=== PATIENT | male | born 1980 | race Caucasian/White ===

== ENCOUNTER 2019-01-22 03:24 | Emergency (ER) | payer OTHER, MEDICAID, SELFPAY ==
[2019-01-22 03:45] VITALS: BP 138/85; PULSE 96; RESP 14; TEMP 36.4; O2SAT 99; BMI 31.5
--- NOTE | 2019-01-22 04:41 | ED_ITS ---
HPI - Extremity Problem <Feli Alexey Granados DO - Last Filed: 01/22/19 09:01> General Chief complaint: Recheck/Abnormal Lab/Rx Stated complaint: right elbow pain/infectious blood disease Time Seen by Provider: 01/22/19 04:38 Source: patient and old records reviewed Mode of arrival: Ambulatory Limitations: no limitations History of Present Illness HPI Narrative: 38-year-old male who comes to the emergency department for right elbow pain and infectious bullets disease. Patient states that he was supposed to be admitted to [facility] in felling him he had an infection in his elbow which from prior records appears to be bursitis. He states that they did draw fluid off of that area and he had a staph infection he was on antibiotics for approximately 2 weeks. He followed up with Orthopedic surgery through [place] Dr. Stallings, patient then fell on a flat palm Um flexing his elbow and had a triceps tendon tear. He was supposed to have repair but his orthopedic surgeon felt that there was continuing to be infection in the elbow and that he needed to be hospitalized for IV antibiotics. This was arranged and with patient and arrived at telling him they were under the impression that the would be staying with him in the room as she is disabled. They were unhappy with th eir interactions with the staff had Balling him and left the hospital to come here. Patient has any fevers. He has had some nausea and occasionally felt hot. He feels like his elbow has been warm, it has been swollen. He states he feels tired intermittently he denies any other symptoms. Has a history of elevated triglycerides, prediabetic but quit his metformin because states it made him feel ill. He takes Percocet as needed for chronic knee pain. He has had knee surgery bilaterally as well as hand surgery for fracture and Staph infection. Denies tobacco, rare alcohol, denies illicit. Related Data Allergies Allergy/AdvReac Type Severity Reaction Status Date / Time No Known Drug Allergies Allergy Verified 01/22/19 04:21 Review of Systems <DO Wilda Tovar Last Filed: 01/22/19 09:01> Review of Systems ROS Unobtainable: All systems reviewed & are unremarkable except as noted in HPI and below Exam <DO Wilda Tovar Last Filed: 01/22/19 09:01> Narrative Exam Narrative: GENERAL: Alert and oriented x three, obese male who appears older than his stated age HEENT: Head normocephalic, atraumatic, EOMI, pupils reactive, face symmetric, moist mucous membranes NECK: Supple, full range of motion CARDIOVASCULAR: Regular rate and rhythm without murmurs, rubs or gallops. RESPIRATORY: Breath sounds equal bilaterally, no wheezes rales or rhonchi. ABDOMEN: Soft, nontender. Normoactive bowel sounds all 4 quadrants. No guarding or rebound, rigidity, no mass : No CVA tenderness EXTREMITIES: Patient's right elbow has some mild tenderness, he does appear to be more swollen in gentle right compared to left but there is no discrete bursitis that I can palpated sort of a generalized swelling around the elbow. I do not appreciate any erythema but there does appear to be darkening of the skin. There is no warmth. Patient has slightly decreased range of motion by about 10 or 20?. He has no other bony tenderness. He has full strength with architectural administrative assistant equal and 2+ pulses bilaterally, no clubbing. Neurovascularly intact NEUROLOGICAL: Cranial nerves II through XII grossly intact. Moving all ext remities SKIN: Warm, dry, no petechiae, no rashes or lesions. Initial Vital Signs Initial Vital Signs: Vital Signs Temperature 97.5 F L 01/22/19 03:45 Pulse Rate 96 H 01/22/19 03:45 Respiratory Rate 14 01/22/19 03:45 Blood Pressure 138/85 01/22/19 03:45 Pulse Oximetry 99 01/22/19 03:45 <Henrik Balbuena, DO - Last Filed: 01/22/19 09:22> Initial Vital Signs Initial Vital Signs: Vital Signs Temperature 97.5 F L 01/22/19 03:45 Pulse Rate 96 H 01/22/19 03:45 Respiratory Rate 14 01/22/19 03:45 Blood Pressure 138/85 01/22/19 03:45 Pulse Oximetry 99 01/22/19 03:45 Course <Feli Granados, DO - Last Filed: 01/22/19 09:01> Orders Ordered: ED Orders 01/22/19 05:03 XR elbow RT min 3V Stat 01/22/19 05:30 C-Reactive Protein Quant Stat Complete Blood Count AUTO DIFF Stat Comprehensive Metabolic Panel Stat Erythrocyte Sedimentation Rate Stat Procalcitonin Stat 01/22/19 05:40 Blood Culture Stat Vital Signs Vital signs: Vital Signs - 8 hr 01/22/19 03:45 01/22/19 07:55 Temperature 97.5 F L Pulse Rate 96 H 75 Respiratory Rate 14 16 Blood Pressure 138/85 121/58 L Pulse Oximetry 99 97 <Henrik Balbuena, DO - Last Filed: 01/22/19 09:22> Orders Ordered: ED Orders 01/22/19 05:03 XR elbow RT min 3V Stat 01/22/19 05:30 C-Reactive Protein Quant Stat Complete Blood Count AUTO DIFF Stat Comprehensive Metabolic Panel Stat Erythrocyte Sedimentation Rate Stat Procalcitonin Stat 01/22/19 05:40 Blood Culture Stat Vital Signs Vital signs: Vital Signs - 8 hr 01/22/19 03:45 01/22/19 07:55 Temperature 97.5 F L Pulse Rate 96 H 75 Respiratory Rate 14 16 Blood Pressure 138/85 121/58 L Pulse Oximetry 99 97 MDM - Extremity (Nontraumatic) <Feli Granados, DO - Last Filed: 01/22/19 09:01> Lab Data Attestation: I reviewed the patient's lab results. Result diagrams: 01/22/19 05:30 01/22/19 05:30 Labs: Lab Results 01/22/19 01/22/19 01/22/19 Range/Units 05:30 05:30 05:30 WBC 11.0 (4.5-11.0) X10^3/uL RBC 4.32 L (4.5-5.9) X10^6/uL Hgb 12.8 L (13.5-17.5) g/dL Hct 37.0 L (41-53) % MCV 85.7 (80-100) fL MCH 29.8 (26-34) PG MCHC 34.7 (30-36) % RDW 13.3 (11.6-14.8) % Plt Count 492 H (150-400) X10^3/uL Neut % (Auto) 63.2 (50-75) % Lymph % (Auto) 28.3 (25-40) % Dickson % (Auto) 7.6 (3-14) % Eos % (Auto) 0.6 L (2-4) % Baso % (Auto) 0.3 (0-2) % Neut # (Auto) 6900 (0051-0680) /uL Lymph # (Auto) 3100 (9703-4498) /uL Dickson # (Auto) 800 (0-900) /uL Eos # (Auto) 100 (0-450) /uL Baso # (Auto) 0 (0-100) /uL ESR 61 H (0-15) MM/HR Sodium 140 (137-145) mmol/L Potassium 4.3 (3.4-5.1) mmol/L Chloride 100 (98-107) mmol/L Carbon Dioxide 30 (22-32) mmol/L BUN 19 (9-20) mg/dL Creatinine 0.80 (0.66-1.25) mg/dL Estimated GFR > 60.0 (>60) mL/min BUN/Creatinine Ratio 23.8 H (6-22) Glucose 112 H (70-100) mg/dL Calcium 9.2 (8.4-10.2) mg/dL Total Bilirubin 0.5 (0.2-1.3) mg/dL AST 32 (17-59) IU/L ALT 30 (21-72) IU/L Alkaline Phosphatase 95 (38-126) U/L C-Reactive Protein 3.2 H (<1.0) mg/dL Total Protein 8.2 (6.3-8.2) g/dL Albumin 4.3 (3.5-5.0) g/dL Globulin 3.9 (1.7-4.1) g/dL Albumin/Globulin Ratio 1.1 (1.0-2.8) Procalcitonin < 0.05 (<0.5) ng/mL Imaging Data Elbow x-ray: Radiologist's impression: [address] [address] XRay Report Signed Patient: Delta Sidhu [facility]#: [id number] : 1980Acct:[id number] Age/Sex: 38 / MDate of Service: 01/22/19 Loc: ED Accession Number: [id number] Procedure: XR elbow RT min 3V Ordering Provider: Feli Granados D.O. PROCEDURE: XR ELBOW RT MIN 3V INDICATIONS: bursitis/septic arthritis, recent tendon rupture TECHNIQUE: 3 views of the elbow were acquired. COMPARISON: None. FINDINGS: Bones: No acute fractures or dislocations. There is a remote, healed fracture seen of the olecranon fossa. No suspicious bony lesions. Soft tissues: Calcification is seen posterior to the olecranon, which is consistent with a given history of a triceps tendon rupture. Soft tissue swelling is seen. IMPRESSION: Soft tissue swelling is seen, with a triceps tendon rupture. If it would be helpful for clinical management decision making, please consider a dedicated elbow MRI for further evaluation (assuming that there is no contraindication). Dictated by: Ramesh Monk M.D. on 01/22/2019 at 6:58 Approved by: Ramesh Monk M.D. on 01/22/2019 at 7:00 MDM Narrative Medical decision making narrative: Records obtained, patient was signed out to Dr. Balbuena while awaiting labs. <Henrik Balbuena, - Last Filed: 01/22/19 09:22> Lab Data Labs: Lab Results 01/22/19 01/22/19 01/22/19 Range/Units 05:30 05:30 05:30 WBC 11.0 (4.5-11.0) X10^3/uL RBC 4.32 L (4.5-5.9) X10^6/uL Hgb 12.8 L (13.5-17.5) g/dL Hct 37.0 L (41-53) % MCV 85.7 (80-100) fL MCH 29.8 (26-34) PG MCHC 34.7 (30-36) % RDW 13.3 (11.6-14.8) % Plt Count 492 H (150-400) X10^3/uL Neut % (Auto) 63.2 (50-75) % Lymph % (Auto) 28.3 (25-40) % Dickson % (Auto) 7.6 (3-14) % Eos % (Auto) 0.6 L (2-4) % Baso % (Auto) 0.3 (0-2) % Neut # (Auto) 6900 (8022-5389) /uL Lymph # (Auto) 3100 (2611-5677) /uL Dickson # (Auto) 800 (0-900) /uL Eos # (Auto) 100 (0-450) /uL Baso # (Auto) 0 (0-100) /uL ESR 61 H (0-15) MM/HR Sodium 140 (137-145) mmol/L Potassium 4.3 (3.4-5.1) mmol/L Chloride 100 (98-107) mmol/L Carbon Dioxide 30 (22-32) mmol/L BUN 19 (9-20) mg/dL Creatinine 0.80 (0.66-1.25) mg/dL Estimated GFR > 60.0 (>60) mL/min BUN/Creatinine Ratio 23.8 H (6-22) Glucose 112 H (70-100) mg/dL Calcium 9.2 (8.4-10.2) mg/dL Total Bilirubin 0.5 (0.2-1.3) mg/dL AST 32 (17-59) IU/L ALT 30 (21-72) IU/L Alkaline Phosphatase 95 (38-126) U/L C-Reactive Protein 3.2 H (<1.0) mg/dL Total Protein 8.2 (6.3-8.2) g/dL Albumin 4.3 (3.5-5.0) g/dL Globulin 3.9 (1.7-4.1) g/dL Albumin/Globulin Ratio 1.1 (1.0-2.8) Procalcitonin < 0.05 (<0.5) ng/mL MDM Narrative Medical decision making narrative: Dr. Balbuena: Received turned over from night provider. Reviewed patient's history and physical. Perform my own independent exam. We did receive records from [facility]. I did discuss the case with Dr. Long who was on-call at our facility for Orthopedics. A discussion with Dr. Long who recommended given the complexity of the patient's situation and also the concern for follow-up that the patient be sent back to facility where he currently has an establish care with Orthopedics who also comes out to the [facility] where the patient could follow up. Patient is nontoxic appearing. I went in and discussed this with the patient. I offered to arrange transport for him to go back to [facility] where he was already scheduled to be inpatient. We did discuss the importance of continuity of care. Also informed him that he could be discharged and follow up with his primary on Thursday morning. Patient opted to be discharged home. He was alert oriented x3 and in my opinion at the capacity to make decisions. He is going to continue with his oral antibiotics. He was given return precautions and follow-up instructions. He expressed understanding and agreement with plan. Discharge Plan Departure Patient Disposition: Home Clinical Impression: Bursitis Qualifiers: Bursitis location: elbow Elbow bursitis location: olecranon bursitis Laterality: right Qualified Code(s): M70.21 - Olecranon bursitis, right elbow Discharge Date/Time: 01/22/19 07:55 Instructions: Bursitis Activity Restrictions/Additional Instructions: After our discussion you opted to follow up with your primary doctor rather than be transferred to [facility] to see your orthopedic provider. I do recommend that you continue all of your antibiotics. On Thursday contact your primary provider for a follow-up. Follow up with your orthopedic provider at [facility] if your symptoms worsen Referrals: Aleisha Radford PA-C [Primary Care Provider] -
--- NOTE | 2019-01-22 05:03 | DI.RAD.S_ITS ---
PROCEDURE: XR ELBOW RT MIN 3V INDICATIONS: bursitis/septic arthritis, recent tendon rupture TECHNIQUE: 3 views of the elbow were acquired. COMPARISON: None. FINDINGS: Bones: No acute fractures or dislocations. There is a remote, healed fracture seen of the olecranon fossa. No suspicious bony lesions. Soft tissues: Calcification is seen posterior to the olecranon, which is consistent with a given history of a triceps tendon rupture. Soft tissue swelling is seen. IMPRESSION: Soft tissue swelling is seen, with a triceps tendon rupture. If it would be helpful for clinical management decision making, please consider a dedicated elbow MRI for further evaluation (assuming that there is no contraindication). Dictated by: Ramesh Monk M.D. on 01/22/2019 at 6:58 Approved by: Ramesh Monk M.D. on 01/22/2019 at 7:00
[2019-01-22 06:03] LABS: Add Manual Diff / Slide Review NO; Basophils Absolute Auto 0 /uL (0-100); Basophils Percent Auto 0.3 % (0-2); Eosinophils Absolute Auto 100 /uL (0-450); Eosinophils Percent Auto 0.6 % (2-4); Hemoglobin 12.8 g/dL (13.5-17.5); Lymphocytes Absolute Auto 3100 /uL (1100-4500); Lymphocytes Percent Auto 28.3 % (25-40); Mean Corpuscular HGB Conc 34.7 % (30-36); Mean Corpuscular Hemoglobin 29.8 PG (26-34); Mean Corpuscular Volume 85.7 fL (80-100); Monocytes Absolute Auto 800 /uL (0-900); Monocytes Percent Auto 7.6 % (3-14); Neutrophils Absolute Auto 6900 /uL (1500-7000); Neutrophils Percent Auto 63.2 % (50-75); Platelet Count 492 X10^3/uL (150-400); Red Blood Cell Count 4.32 X10^6/uL (4.5-5.9); Red Cell Distribution Width 13.3 % (11.6-14.8)
[2019-01-22 06:13] LABS: Alanine Aminotransferase 30 IU/L (21-72); Albumin 4.3 g/dL (3.5-5.0); Albumin Globulin Ratio 1.1 (1.0-2.8); Alkaline Phosphatase 95 U/L (38-126); Aspartate Aminotransferase 32 IU/L (17-59); BUN Creatinine Ratio 23.8 (6-22); Bilirubin Total 0.5 mg/dL (0.2-1.3); Blood Urea Nitrogen 19 mg/dL (9-20); Calcium 9.2 mg/dL (8.4-10.2); Carbon Dioxide 30 mmol/L (22-32); Chloride 100 mmol/L (98-107); Estimated Glomerular Filt Rate > 60.0 mL/min (>60); Globulin 3.9 g/dL (1.7-4.1); Glucose 112 mg/dL (70-100); HEMOLYSIS < 15 (0-50); Potassium 4.3 mmol/L (3.4-5.1); Sodium 140 mmol/L (137-145); Total Protein 8.2 g/dL (6.3-8.2)
[2019-01-22 06:32] LABS: C-Reactive Protein Quant 3.2 mg/dL (<1.0); Erythrocyte Sedimentation Rate 61 MM/HR (0-15)
[2019-01-22 06:57] LABS: Procalcitonin < 0.05 ng/mL (<0.5)
[2019-01-22 07:55] VITALS: BP 121/58; PULSE 75; RESP 16; O2SAT 97
== END 2019-01-22 07:55 | disposition home or self-care (01) ==
PROVIDERS: Emergency Medicine; Emergency Provider Emergency Medicine; PCP Physician Assistant Medical
DX: M70.21 Olecranon bursitis, right elbow (principal)
CPT/HCPCS: 36415; 73080; 80053; 84145; 85025; 85651; 86140; 87040; 99282; 99284

== ENCOUNTER 2021-05-03 15:55 | Emergency (ER) | payer OTHER, MEDICAID, SELFPAY ==
[2021-05-03 15:59] VITALS: BP 134/68; PULSE 65; RESP 94; TEMP 36.2; O2SAT 98; BMI 31.5
--- NOTE | 2021-05-03 16:28 | ED.EXTPRO ---
HPI - Extremity Problem General Chief complaint: Extremity Problem,Nontraumatic Stated complaint: pain in legs and numbness in right leg Time Seen by Provider: 05/03/21 16:21 Source: patient Mode of arrival: Ambulatory History of Present Illness HPI Narrative: Patient is a 41-year-old male. He is here for evaluation of pain and numbness in his bilateral lower extremities. He does state that the right is worse than his left. It is been there for the past several weeks if not longer. No specific trauma. He states that it does seem to come and go. He states that he is having numbness in the back of his right calf and also pain and numbness in the bottom both of his feet. Has not been evaluated for this in the past. Has had lower back pain in the past. No urinary symptoms. No change in bowel habits. No saddle anesthesia. No fevers. Related Data Previous Rx's Medication Instructions Recorded gabapentin 100 mg capsule 100 mg PO TID #90 cap 05/03/21 (Neurontin) Allergies Allergy/AdvReac Type Severity Reaction Status Date / Time No Known Drug Allergies Allergy Verified 05/03/21 15:59 Review of Systems Musculoskeletal Musculoskeletal: Reports system reviewed and no additional complaints, except as documented and Reports as per HPI Integumentary/Breasts Skin/Breast: Reports system reviewed and no additional complaints, except as documented and Reports as per HPI Neurologic Neurologic: Reports system reviewed and no additional complaints, except as documented and Reports as per HPI Hematologic/Lymphatic On Anticoagulants: No Patient History Medical History Patient denies medical problems Social History Smoking Status: Never smoker Smoking Status: Never smoker alcohol intake frequency: holidays/special occasions only Substance Use Type: does not use Exam Initial Vital Signs Initial Vital Signs: Vital Signs Temperature 97.2 F L 05/03/21 15:59 Pulse Rate 65 05/03/21 15:59 Respiratory Rate 94 H 05/03/21 15:59 Blood Pressure 134/68 05/03/21 15:59 Pulse Oximetry 98 05/03/21 15:59 HENMT Head: normal to inspection and normocephalic Resp Effort & Inspection: normal respiratory effort Cardio Rhythm: regular rhythm Pulses: dorsalis pedis present bilaterally Skin General: no rashes or lesions noted Neuro Other: Patient reports decreased sensation to light touch in the posterior aspect of his right calf compared to the left side. Also decreased sensation on the medial aspect of his right foot compared to the left. Extrem Other: No gross deformities of bilateral feet. Psych Appearance: disheveled Course Orders Ordered: ED Orders 05/03/21 16:28 Consult to [facility] [place] - Senior Administrative Services Officer Stat 05/03/21 16:51 Complete Blood Count AUTO DIFF Stat Comprehensive Metabolic Panel Stat Lipase Stat Vital Signs Vital signs: Vital Signs - 8 hr 05/03/21 15:59 Temperature 97.2 F L Pulse Rate 65 Respiratory Rate 94 H Blood Pressure 134/68 Pulse Oximetry 98 MDM - Extremity (Nontraumatic) Lab Data Result diagrams: 05/03/21 16:51 05/03/21 16:51 Labs: Lab Results 05/03/21 05/03/21 05/03/21 Range/Units 16:51 16:51 16:51 WBC 8.0 (4.5-11.0) X10^3/uL RBC 4.26 L (4.5-5.9) X10^6/uL Hgb 12.9 L (13.5-17.5) g/dL Hct 37.6 L (41-53) % MCV 88.2 (80-100) fL MCH 30.3 (26-34) PG MCHC 34.3 (30-36) % RDW 13.9 (11.6-14.8) % Plt Count 328 (150-400) X10^3/uL Neut % (Auto) 68.2 (50-75) % Lymph % (Auto) 24.9 L (25-40) % [place]a % (Auto) 4.9 (3-14) % Eos % (Auto) 1.3 L (2-4) % Baso % (Auto) 0.7 (0-2) % Neut # (Auto) 5500 (3404-0367) /uL Lymph # (Auto) 2000 (8217-5237) /uL [place] # (Auto) 400 (0-900) /uL Eos # (Auto) 100 (0-450) /uL Baso # (Auto) 100 (0-100) /uL Sodium 140 (137-145) mmol/L Potassium 4.2 (3.4-5.1) mmol/L Chloride 107 (98-107) mmol/L Carbon Dioxide 29 (22-32) mmol/L BUN 20 (9-20) mg/dL Creatinine 0.68 (0.66-1.25) mg/dL Estimated GFR > 60.0 (>60) mL/min BUN/Creatinine Ratio 29.4 H (6-22) Glucose 125 H (70-100) mg/dL Calcium 8.7 (8.4-10.2) mg/dL Total Bilirubin 0.2 (0.2-1.3) mg/dL AST 29 (17-59) IU/L ALT 33 (<50) IU/L Alkaline Phosphatase 101 (38-126) U/L Total Protein 7.4 (6.3-8.2) g/dL Albumin 4.1 (3.5-5.0) g/dL Globulin 3.3 (1.7-4.1) g/dL Albumin/Globulin Ratio 1.2 (1.0-2.8) Lipase 45 (23-300) U/L MDM Narrative Medical decision making narrative: Labs are unremarkable. Patient is fairly disheveled. Has been seen by social work who will work with him at the beginning of next week to try to find a primary doctor. He is vascularly intact. There is no signs of any infection. Symptoms consistent with a peripheral neuropathy of a unknown origin currently however given the length of time the symptoms have been going on in his physical exam I feel this is unlikely an emergent process. No indication for antibiotics. Will start on Neurontin to try to help with the symptoms. He was given return precautions. He expressed understanding and agreement. Discharge Plan Departure Patient Disposition: Home Clinical Impression: Neuropathy Instructions: Peripheral Neuropathy Activity Restrictions/Additional Instructions: Social Work has been involved and will be contacting you to try to help get you establish with a primary doctor. You can also contact the call center at [phone]. Your blood work today is unremarkable. There is no signs of any infection. We will start you on a medicine called Neurontin. This should help with the discomfort your having. This medicine may need to be increased so it is important that you contact your primary doctor for follow-up. Prescriptions: New gabapentin [Neurontin] 100 mg capsule 100 mg PO TID Qty: 90 0RF Referrals: Aleisha Radford PA-C [Primary Care Provider] -
[2021-05-03 16:58] LABS: Add Manual Diff / Slide Review NO; Basophils Absolute Auto 100 /uL (0-100); Basophils Percent Auto 0.7 % (0-2); Eosinophils Absolute Auto 100 /uL (0-450); Eosinophils Percent Auto 1.3 % (2-4); Hematocrit 37.6 % (41-53); Hemoglobin 12.9 g/dL (13.5-17.5); Lymphocytes Absolute Auto 2000 /uL (1100-4500); Lymphocytes Percent Auto 24.9 % (25-40); Mean Corpuscular HGB Conc 34.3 % (30-36); Mean Corpuscular Hemoglobin 30.3 PG (26-34); Mean Corpuscular Volume 88.2 fL (80-100); Monocytes Absolute Auto 400 /uL (0-900); Monocytes Percent Auto 4.9 % (3-14); Neutrophils Absolute Auto 5500 /uL (1500-7000); Neutrophils Percent Auto 68.2 % (50-75); Platelet Count 328 X10^3/uL (150-400); Red Blood Cell Count 4.26 X10^6/uL (4.5-5.9); Red Cell Distribution Width 13.9 % (11.6-14.8)
[2021-05-03 17:15] LABS: Alanine Aminotransferase 33 IU/L (<50); Albumin 4.1 g/dL (3.5-5.0); Albumin Globulin Ratio 1.2 (1.0-2.8); Alkaline Phosphatase 101 U/L (38-126); Aspartate Aminotransferase 29 IU/L (17-59); BUN Creatinine Ratio 29.4 (6-22); Bilirubin Total 0.2 mg/dL (0.2-1.3); Blood Urea Nitrogen 20 mg/dL (9-20); Calcium 8.7 mg/dL (8.4-10.2); Carbon Dioxide 29 mmol/L (22-32); Chloride 107 mmol/L (98-107); Estimated Glomerular Filt Rate > 60.0 mL/min (>60); Globulin 3.3 g/dL (1.7-4.1); Glucose 125 mg/dL (70-100); HEMOLYSIS 20 (0-50); Lipase 45 U/L (23-300); Potassium 4.2 mmol/L (3.4-5.1); Sodium 140 mmol/L (137-145); Total Protein 7.4 g/dL (6.3-8.2)
--- NOTE | 2021-05-03 17:36 | CM.SWNOTE ---
SENIOR ANDROID SOFTWARE ENGINEER Note SENIOR ANDROID SOFTWARE ENGINEER receives consult for community service outreach for patient and patient's need of PCP. Patient is 41 y/o male who presents to ED due to pain in legs and numbness in right leg. SENIOR ANDROID SOFTWARE ENGINEER enters room to meet with patient. Patient states that he resides at the [facility] with his via a [employer] connections motel voucher in the housing support services program. Patient states they have been living there for about two months and can continue to live there until they find an apartment and will receive housing support. Patient states that [place] and recently moved to this area. It is reported that patient is on state benefits and his receives SSI. Patient endorses that he and his are in need of a PCP. SENIOR ANDROID SOFTWARE ENGINEER informs patient due to it being thursday evening, SENIOR ANDROID SOFTWARE ENGINEER will be able to assist in scheduling appts on Thursday. Patient indicates agreement and understanding. SENIOR ANDROID SOFTWARE ENGINEER asks if patient is in need of further supports or resources. Patient requests lists of apartments. SENIOR ANDROID SOFTWARE ENGINEER finds list of available apartments in [facility]. Plan: SENIOR ANDROID SOFTWARE ENGINEER to contact PCP offices on Thursday to schedule patient with establish care PCP appt. SENIOR ANDROID SOFTWARE ENGINEER to f/u with patient on Thursday. Patient to d/c to community when medically clear. DIMPLE Bowman
--- NOTE | 2021-05-08 12:38 | CM.SWNOTE ---
FOLDED CLOTH TAPER F/U Note FOLDED CLOTH TAPER calls [facility] and [facility] provider lines to assist in establishing care for a PCP. [facility] reports they are not accepting new patient. [facility] reports they are booked but can take down patient information and encourages patient to call in to schedule as well. FOLDED CLOTH TAPER attempts to call on 05/06/21 and patient's answers phone then hangs up. FOLDED CLOTH TAPER calls again on 05/08/21 and leaves message informing patient and to call call center for further attempts to establish care with PCP. Ute Maki, FOLDED CLOTH TAPER
== END 2021-05-03 17:54 | disposition home or self-care (01) ==
PROVIDERS: Emergency Provider Emergency Medicine; PCP Physician Assistant Medical
DX: G62.9 Polyneuropathy, unspecified (principal)
CPT/HCPCS: 36415; 80053; 83690; 85025; 99283

== ENCOUNTER 2021-05-15 21:09 | Inpatient (IN) | payer OTHER, MEDICAID, SELFPAY ==
[2021-05-15] VITALS (8 sets, daily range): BP systolic 125–134; BP diastolic 62–80; PULSE 114–126; RESP 18–20; TEMP 37.3–37.4; O2SAT 92–100; BMI 31.6
--- NOTE | 2021-05-15 21:47 | ED.EXTPRO ---
HPI - Extremity Problem General Chief complaint: Extremity Problem,Nontraumatic Stated complaint: rt leg is unable to bear weight Time Seen by Provider: 05/15/21 21:46 Source: patient Mode of arrival: Wheelchair History of Present Illness HPI Narrative: 41-year-old male nonsmoker without chronic medical problems presents with a chief complaint of worsening pain, redness and swelling in his right lower extremity over the past few days. He states that he had what he thought was an ingrown hair just below his right knee a few days ago and he was able to squeeze some pus out of it, soon thereafter he started developing pain and redness which extended down to the dorsum of his foot. He has had increasing pain and now has so much pain he cannot walk on it. He has had no fever but admits to chills. He has had a poor appetite and nausea but no vomiting or diarrhea. He has had staph infections in the past but denies any MRSA. He has no history of IV drug abuse. He denies chest pain or shortness of breath. He denies any trauma or injury, recent travel or history of blood clot Related Data Previous Rx's Medication Instructions Recorded gabapentin 100 mg capsule 100 mg PO TID #90 cap 05/03/21 (Neurontin) Allergies Allergy/AdvReac Type Severity Reaction Status Date / Time No Known Drug Allergies Allergy Verified 05/03/21 15:59 Review of Systems Review of Systems Narrative: GENERAL: See HPI HEENT: Denies sinus pain, ear pain, sore throat, difficulty swallowing, dizziness. RESPIRATORY: Denies dyspnea, cough, wheezing, hemoptysis, sputum. CARDIOVASCULAR: Denies chest pain, palpitations, orthopnea, edema, GASTROINTESTINAL: Denies nausea, vomiting, abdominal pain, diarrhea, constipation, melena. : Denies dysuria, frequency, incontinence, hematuria, urinary retention. MUSCULOSKELETAL: denies weakness, joint pain, or bony pain SKIN: see HPI NEUROLOGIC: Denies weakness, headache, numbness, change in speech, confusion, seizures, incoordination. PSYCHIATRIC: No concerning psychosocial issues. 12 point review of systems is negative except for those stated above Patient History Medical History Patient denies medical problems Social History household members: spouse Smoking Status: Never smoker Smoking Status: Never smoker alcohol intake frequency: holidays/special occasions only Substance Use Type: does not use Exam Narrative Exam Narrative: GENERAL: [41 year old patient appears stated age. Well-developed patient, in mild distress. Clearly does not feel well HEAD: Atraumatic. Normocephalic. EYES: Pupils equal round and reactive. Extraocular motions intact. No scleral icterus. No injection or drainage. ENT: Nose without bleeding, purulent drainage. Throat without erythema, tonsillar hypertrophy or exudate. Airway patent. NECK: Trachea midline. Non tender CARDIOVASCULAR: Tachycardic but regular rhythm without murmurs, gallops, or rubs. RESPIRATORY: Clear to auscultation. Breath sounds equal bilaterally. No wheezes, rales, or rhonchi. GASTROINTESTINAL: Abdomen soft, non-tender, nondistended. EXTREMITIES: Right lower extremity significantly edematous, erythematous and warm from knee down to the foot, largely on the anterior aspect, not quite circumferential but close. There is a healing scab just below the knee anteriorly without any induration, fluctuance or drainage noted. Cap refill and sensation intact on the toes. BACK: Nontender without deformity or crepitance. No flank tenderness. NEURO: AOx3. SKIN: Otherwise, no rash or erythema of visible areas Initial Vital Signs Initial Vital Signs: Vital Signs Temperature 99.4 F 05/15/21 21:24 Pulse Rate 126 H 05/15/21 21:24 Respiratory Rate 20 05/15/21 21:24 Blood Pressure 132/80 05/15/21 21:24 Pulse Oximetry 99 05/15/21 21:24 Course Orders Ordered: ED Orders 05/15/21 21:54 periph venous low extrem rt Stat 05/15/21 22:00 COVID19 -Nasal swab/Pre-Proc Stat 05/15/21 22:10 CRP [C-Reactive Protein Quant] Stat Complete Blood Count AUTO DIFF Stat Comprehensive Metabolic Panel Stat ESR [Erythrocyte Sedimentation Rate] Stat Lactate (Lactic Acid) Stat 05/15/21 22:16 Blood Culture Stat Acetaminophen (Acetaminophen 325 Mg Tablet) 650 mg PO Q6HR PRN PRN Reason: Fever/Mild Pain (1-3) Enoxaparin Sodium (Enoxaparin 40 Mg/0.4 Ml Syringe) 40 mg SUBCUT DAILY ANNEI Hydromorphone HCl (Hydromorphone 0.5 Mg Inj) 0.5 mg IV Q6H PRN PRN Reason: Pain, Moderate (4-6) Sodium Chloride (Normal Saline 0.9%) 1,000 mls @ 150 mls/hr IV CONT ANNIE Sodium Chloride (Normal Saline 0.9%) 2,000 mls @ 1,000 mls/hr IV BOLUS ONE Stop: 05/16/21 01:26 Last Admin: 05/16/21 00:08 Dose: 1,000 mls/hr Documented by: YENNIFER Vancomycin HCl/Dextrose (Vancomycin) 1,500 mg in 300 mls @ 200 mls/hr IV Q12H ANNIE Naloxone HCl (Naloxone 0.4 Mg/Ml Vial) 0.2 mg IV Q2MIN PRN PRN Reason: Opiate Reversal Ondansetron HCl (Ondansetron 4 Mg/2 Ml Inj) 4 mg IV Q8HR PRN PRN Reason: Nausea And Vomiting Oxycodone HCl (Oxycodone Ir 5 Mg Tablet) 5 mg PO Q6HR PRN PRN Reason: Pain, Moderate (4-6) Last Admin: 05/16/21 00:03 Dose: 5 mg Documented by: YENNIFER Vancomycin HCl (Vancomycin Per Pharmacy) 1 request MISC NOW ONE Stop: 05/15/21 23:28 Discontinued Medications Hydromorphone HCl (Hydromorphone 0.5 Mg Inj) 0.5 mg IV NOW ONE Stop: 05/15/21 21:55 Last Admin: 05/15/21 22:07 Dose: 0.5 mg Documented by: TRACY Lactated Ringer's (Lactated Ringers) 1,000 mls @ 1,000 mls/hr IV BOLUS ONE Stop: 05/15/21 22:48 Last Infusion: 05/15/21 23:10 Dose: 1,000 mls/hr Documented by: Admin: 05/15/21 22:04 Dose: 1,000 mls/hr Documented by: TRACY Vancomycin HCl/Dextrose (Vancomycin) 2,000 mg in 400 mls @ 200 mls/hr IV NOW ONE Stop: 05/15/21 23:53 Last Infusion: 05/15/21 23:11 Dose: 200 mls/hr Documented by: Admin: 05/15/21 22:19 Dose: 200 mls/hr Documented by: TRACY Ondansetron HCl (Ondansetron 4 Mg/2 Ml Inj) 4 mg IV NOW ONE Stop: 05/15/21 21:55 Last Admin: 05/15/21 22:08 Dose: 4 mg Documented by: TRACY Vital Signs Vital signs: Vital Signs - 8 hr 05/15/21 21:24 05/15/21 21:39 05/15/21 21:45 Temperature 99.4 F Pulse Rate 126 H 123 H 120 H Respiratory Rate 20 Blood Pressure 132/80 Pulse Oximetry 99 100 100 05/15/21 22:00 05/15/21 22:01 05/15/21 22:30 Temperature Pulse Rate 120 H 114 H Respiratory Rate Blood Pressure 134/62 125/65 Pulse Oximetry 98 92 MDM - Extremity (Nontraumatic) Lab Data Result diagrams: 05/15/21 22:10 05/15/21 22:10 Labs: Lab Results 05/15/21 05/15/21 05/15/21 Range/Units 22:00 22:10 22:10 WBC (4.5-11.0) X10^3/uL RBC (4.5-5.9) X10^6/uL Hgb (13.5-17.5) g/dL Hct (41-53) % MCV (80-100) fL MCH (26-34) PG MCHC (30-36) % RDW (11.6-14.8) % Plt Count (150-400) X10^3/uL Neut % (Auto) Lymph % (Auto) [place] % (Auto) Eos % (Auto) Baso % (Auto) Lymph # (Auto) [place] # (Auto) Baso # (Auto) Total Counted Seg Neutrophils % (38-70) % Band Neutrophils % (3-7) % Lymphocytes % (Manual) (25-45) % Monocytes % (Manual) (2-11) % Neutrophils # (Manual) (1743-9845) /uL Dohle Bodies RBC Morphology ESR 60 H (0-15) MM/HR Sodium (137-145) mmol/L Potassium (3.4-5.1) mmol/L Chloride (98-107) mmol/L Carbon Dioxide (22-32) mmol/L BUN (9-20) mg/dL Creatinine (0.66-1.25) mg/dL Estimated GFR (>60) mL/min BUN/Creatinine Ratio (6-22) Glucose (70-100) mg/dL Lactate (0.7-2.1) mmol/L Calcium (8.4-10.2) mg/dL Total Bilirubin (0.2-1.3) mg/dL AST (17-59) IU/L ALT (<50) IU/L Alkaline Phosphatase (38-126) U/L C-Reactive Protein 34.0 H (<1.0) mg/dL Total Protein (6.3-8.2) g/dL Albumin (3.5-5.0) g/dL Globulin (1.7-4.1) g/dL Albumin/Globulin Ratio (1.0-2.8) SARS-CoV-2 (PCR) Negative (Negative) 05/15/21 05/15/21 05/15/21 Range/Units 22:10 22:10 22:10 WBC 23.6 H (4.5-11.0) X10^3/uL RBC 3.85 L (4.5-5.9) X10^6/uL Hgb 11.5 L (13.5-17.5) g/dL Hct 33.8 L (41-53) % MCV 87.7 (80-100) fL MCH 29.9 (26-34) PG MCHC 34.1 (30-36) % RDW 13.7 (11.6-14.8) % Plt Count 249 (150-400) X10^3/uL Neut % (Auto) Not Reportable Lymph % (Auto) Not Reportable [place] % (Auto) Not Reportable Eos % (Auto) Not Reportable Baso % (Auto) Not Reportable Lymph # (Auto) Not Reportable [place] # (Auto) Not Reportable Baso # (Auto) Not Reportable Total Counted 100 Seg Neutrophils % 88.0 H (38-70) % Band Neutrophils % 5.0 (3-7) % Lymphocytes % (Manual) 3.0 L (25-45) % Monocytes % (Manual) 4.0 (2-11) % Neutrophils # (Manual) 13392 H (1779-3367) /uL Dohle Bodies 1+ H RBC Morphology See below ESR (0-15) MM/HR Sodium 133 L (137-145) mmol/L Potassium 3.6 (3.4-5.1) mmol/L Chloride 102 (98-107) mmol/L Carbon Dioxide 28 (22-32) mmol/L BUN 14 (9-20) mg/dL Creatinine 0.82 (0.66-1.25) mg/dL Estimated GFR > 60.0 (>60) mL/min BUN/Creatinine Ratio 17.1 (6-22) Glucose 120 H (70-100) mg/dL Lactate 0.9 (0.7-2.1) mmol/L Calcium 8.9 (8.4-10.2) mg/dL Total Bilirubin 1.1 (0.2-1.3) mg/dL AST 22 (17-59) IU/L ALT 30 (<50) IU/L Alkaline Phosphatase 63 (38-126) U/L C-Reactive Protein (<1.0) mg/dL Total Protein 7.4 (6.3-8.2) g/dL Albumin 3.8 (3.5-5.0) g/dL Globulin 3.6 (1.7-4.1) g/dL Albumin/Globulin Ratio 1.1 (1.0-2.8) SARS-CoV-2 (PCR) (Negative) Imaging Data US - DVT: Radiologist's Impression: [place] [address] Ultrasound Report Signed Patient: Delta Sidhu MR#: [id number] : 1980 Acct:[id number] Age/Sex: 41 / M Date of Service: 05/15/21 Loc: 221-1 Accession Number: [id number] ?? Procedure: US periph venous low extrem rt Ordering Provider: Michael Noyola D.O. PROCEDURE:? US PERIPH VENOUS LOW EXTREM RT ? INDICATIONS:? PAIN, REDNESS, WARMTH ? TECHNIQUE:? Real-time imaging, as well as color and pulse Doppler interrogation, were performed of the lower extremity deep veins from the inguinal ligament to the popliteal fossa.? ? COMPARISON:? None. ? FINDINGS:? The common femoral, femoral and popliteal veins are normally compressible, and free of intraluminal thrombus.? Color and pulse Doppler demonstrate normal phasic intraluminal flow.? There is normal augmentation response to distal compression maneuver. ?Alvarez cyst is present measuring 5.9 x 1.7 x 2.9 cm. ? IMPRESSION:? No deep venous thrombosis. ? ? Dictated by: Marlene Green M.D. on 05/15/2021 at 23:38 ? ? Approved by: Marlene Green M.D. on 05/15/2021 at 23:39 ? Discharge Plan Departure Patient Disposition: Admitted As Inpatient Clinical Impression: Cellulitis of leg, right Admit Date/Time: 05/15/21 22:40 Admit Provider: Demetrio Pérez
--- NOTE | 2021-05-15 21:54 | DI.US.S_ITS ---
PROCEDURE: US PERIPH VENOUS LOW EXTREM RT INDICATIONS: PAIN, REDNESS, WARMTH TECHNIQUE: Real-time imaging, as well as color and pulse Doppler interrogation, were performed of the lower extremity deep veins from the inguinal ligament to the popliteal fossa. COMPARISON: None. FINDINGS: The common femoral, femoral and popliteal veins are normally compressible, and free of intraluminal thrombus. Color and pulse Doppler demonstrate normal phasic intraluminal flow. There is normal augmentation response to distal compression maneuver. Alvarez cyst is present measuring 5.9 x 1.7 x 2.9 cm. IMPRESSION: No deep venous thrombosis. Dictated by: Marlene Green M.D. on 05/15/2021 at 23:38 Approved by: Marlene Green M.D. on 05/15/2021 at 23:39
[2021-05-15] MEDS: LACTATED RINGERS 1,000 ML 1000 ML IV (22:04)
[2021-05-15] MEDS: HYDROMORPHONE 0.5 MG INJ IV (22:07)
[2021-05-15] MEDS: ONDANSETRON 4 MG/2 ML INJ IV (22:08)
[2021-05-15] MEDS: VANCOMYCIN 2,000 MG/400 ML PIGGYBACK 200 MG IV (22:19)
[2021-05-15 22:36] LABS: Hematocrit 33.8 % (41-53); Hemoglobin 11.5 g/dL (13.5-17.5); Mean Corpuscular HGB Conc 34.1 % (30-36); Mean Corpuscular Hemoglobin 29.9 PG (26-34); Mean Corpuscular Volume 87.7 fL (80-100); Platelet Count 249 X10^3/uL (150-400); Red Blood Cell Count 3.85 X10^6/uL (4.5-5.9); Red Cell Distribution Width 13.7 % (11.6-14.8); White Blood Cell Count 23.6 X10^3/uL (4.5-11.0)
[2021-05-15 22:40] LABS: Add Manual Diff / Slide Review YES
[2021-05-15 22:40] LABS: COVID19 -Nasal RAPID Negative (Negative)
[2021-05-15 22:42] LABS: Lactate (Lactic Acid) 0.9 mmol/L (0.7-2.1)
[2021-05-15 22:43] LABS: Alanine Aminotransferase 30 IU/L (<50); Albumin 3.8 g/dL (3.5-5.0); Albumin Globulin Ratio 1.1 (1.0-2.8); Alkaline Phosphatase 63 U/L (38-126); Aspartate Aminotransferase 22 IU/L (17-59); BUN Creatinine Ratio 17.1 (6-22); Bilirubin Total 1.1 mg/dL (0.2-1.3); Blood Urea Nitrogen 14 mg/dL (9-20); Calcium 8.9 mg/dL (8.4-10.2); Carbon Dioxide 28 mmol/L (22-32); Chloride 102 mmol/L (98-107); Estimated Glomerular Filt Rate > 60.0 mL/min (>60); Globulin 3.6 g/dL (1.7-4.1); Glucose 120 mg/dL (70-100); HEMOLYSIS < 15 (0-50); Potassium 3.6 mmol/L (3.4-5.1); Sodium 133 mmol/L (137-145); Total Protein 7.4 g/dL (6.3-8.2)
[2021-05-15 23:02] LABS: Erythrocyte Sedimentation Rate 60 MM/HR (0-15)
--- NOTE | 2021-05-15 23:47 | PM.HP.1 ---
History of Present Illness History of Present Illness Date Patient Seen: 05/15/21 Time Patient Seen: 23:00 Chief complaint: rt leg is unable to bear weight Narrative: Mr. Sidhu is a 41M with PMH of prediabetes, diet controlled, recent bilateral leg numbness who presents with right leg pain. He states he noted bilateral leg numbness, right worse than left over a month ago. He did present to the hospital and was prescribed gabapentin. He did not have imaging at that time. He has no PCP. He notes in the last two days he began to develop right leg pain. It started mid abrams. He had no trauma. His right leg became swollen, painful. He had fevers/chills. He lost his appetite. He has no chest pain, cough, shortness of breath. He was having difficulty walking due to the pain. He presented to the ED. In the ED workup was done, vitals notable for t-99.4, heart rate in 120s, blood pressure normal. Labs notable for WBC 23.6, hgb 11.5, lactate normal. Blood cultures ordered. Ultrasound showed no DVT. He was ordered for antibiotics and IV fluids and admitted for further treatment. Family: mother and father with diabetes Patient History Medical History Patient denies medical problems Family & Social History Social History: household members spouse Prior Living Arrangements Homeless Safety & Behavioral: Feels Safe in Current Yes Environment Been Physically Hurt or No Threatened By a Person Suicidal Ideation Description None Suicide Plan Description No Plan Tobacco & Substance use: Smoking Status Never smoker alcohol intake frequency holiday/special occasion Substance Use Type does not use Meds Home Medications and Allergies Home Medications Medication Instructions Recorded Confirmed Type gabapentin 100 mg capsule 100 mg PO TID #90 cap 05/03/21 Rx (Neurontin) Allergies Allergy/AdvReac Type Severity Reaction Status Date / Time No Known Drug Allergies Allergy Verified 05/03/21 15:59 Review of Systems Review of Systems Narrative: 14 systems reviewed and negative aside from what is noted in HPI Exam Vital Signs (past 8 hours): - 05/15/21 21:24 05/15/21 21:39 05/15/21 21:45 Temperature 99.4 F Pulse Rate 126 H 123 H 120 H Respiratory Rate 20 Blood Pressure 132/80 Pulse Oximetry 99 100 100 05/15/21 22:00 05/15/21 22:01 05/15/21 22:30 Temperature Pulse Rate 120 H 114 H Respiratory Rate Blood Pressure 134/62 125/65 Pulse Oximetry 98 92 05/15/21 23:10 05/15/21 23:24 Temperature 99.1 F Pulse Rate 115 H Respiratory Rate 18 Blood Pressure 133/69 Pulse Oximetry 100 100 Oxygen Delivery Method Room Air Oxygen Flow Rate 0 Narrative Exam Narrative: GEN: in distress from pain HEENT: dry mucous membranes, PERRL NECK: trachea midline PULM: clear bilaterally CV: tachycardic, no murmurs ABD: soft, nontender, nondistended, no organomegaly EXT: right leg warm, erythema, pain to touch, area of erythema begins proximal to the ankle and is superficial, the lower leg is swollen, the area of erythema extends up to the skin overlying the knee, the right knee has no significant pain with motion and range of motion is intact NEURO: awake alert, oriented, no focal deficits, does have subjective numbness on bilateral legs PSYCH: pleasant Objective Labs Result Diagrams: 05/15/21 22:10 05/15/21 22:10 Labs: Laboratory Results - last 24 hr 05/15/21 05/15/21 05/15/21 22:00 22:10 22:10 WBC 23.6 H RBC 3.85 L Hgb 11.5 L Hct 33.8 L MCV 87.7 MCH 29.9 MCHC 34.1 RDW 13.7 Plt Count 249 Neut % (Auto) Not Reportable Lymph % (Auto) Not Reportable [place] % (Auto) Not Reportable Eos % (Auto) Not Reportable Baso % (Auto) Not Reportable Lymph # (Auto) Not Reportable [place] # (Auto) Not Reportable Baso # (Auto) Not Reportable ESR 60 H Sodium Potassium Chloride Carbon Dioxide BUN Creatinine Estimated GFR BUN/Creatinine Ratio Glucose Lactate Calcium Total Bilirubin AST ALT Alkaline Phosphatase Total Protein Albumin Globulin Albumin/Globulin Ratio SARS-CoV-2 (PCR) Negative 05/15/21 05/15/21 22:10 22:10 WBC RBC Hgb Hct MCV MCH MCHC RDW Plt Count Neut % (Auto) Lymph % (Auto) [place] % (Auto) Eos % (Auto) Baso % (Auto) Lymph # (Auto) [place] # (Auto) Baso # (Auto) ESR Sodium 133 L Potassium 3.6 Chloride 102 Carbon Dioxide 28 BUN 14 Creatinine 0.82 Estimated GFR > 60.0 BUN/Creatinine Ratio 17.1 Glucose 120 H Lactate 0.9 Calcium 8.9 Total Bilirubin 1.1 AST 22 ALT 30 Alkaline Phosphatase 63 Total Protein 7.4 Albumin 3.8 Globulin 3.6 Albumin/Globulin Ratio 1.1 SARS-CoV-2 (PCR) Assessment & Plan Assessment & Plan narrative: Mr. Sidhu is a 41M who presents with 2 days of worsening leg pain found to have a right leg cellulitis. 1. right leg Cellulitis from sepsis, acute -patient presented with tachycardia, leukocytosis of 23, normal lactate, however per sepsis 3 has no organ dysfunction -ordered for IV fluid 30cc/kg, ordered for blood cultures and antibiotics -continue IV vancomycin -monitor spread closely, currently no joint involvement on right knee -demarcate area of cellulitis -follow up cultures 2. Anemia, mild -etiology not clear -no indication for transfusion -would benefit from follow up with PCP -trend daily hemoglobin 3. Bilateral leg numbness, chronic -no saddle anesthesia, no incontinence, no objective weakness on exam -could consider back imaging or further workup was outpatient 4. Obesity -encourage lifestyle changes -establish PCP care 5. Homeless -lives in [facility] follow up CODE: Full Proxy: Marybeth Wilson, I have utilized all available resources to reconcile patient's home medications. Time Spent With Patient Critical Care time: I spent a total of [] minutes of critical care time on this patient's care today; this time is exclusive of procedural time. Quality VTE Deep Vein Thrombosis/Pulmonary Embolism Present on Admission: No MIPS - Admit I confirm the patient?s Advance Care Plan is present, Code status is documented, Surrogate decision maker is in patient?s record [If Yes, STOP here]: Yes
[2021-05-15 23:57] LABS: Dohle Bodies 1+
[2021-05-16] VITALS (15 sets, daily range): BP systolic 100–130; BP diastolic 47–74; PULSE 91–114; RESP 14–18; TEMP 36.4–37.8; O2SAT 95–100
[2021-05-16] MEDS: OXYCODONE IR 5 MG TABLET PO ×2 (00:03→16:28)
[2021-05-16 00:05] LABS: Neutrophils Absolute Manual 21948 /uL (3000-5900); Total Cells Counted 100
[2021-05-16] MEDS: SODIUM CHLORIDE 0.9% 2,000 ML 1000 ML IV (00:08)
[2021-05-16] MEDS: SODIUM CHLORIDE 0.9% 1,000 ML 150 ML IV ×3 (02:24→21:36)
[2021-05-16 05:27] LABS: Appearance Urine UA CLEAR; Bilirubin Urine UA NEGATIVE (NEGATIVE); Color Urine UA YELLOW; Glucose Urine UA NEGATIVE (Negative); Ketones Urine UA TRACE (NEGATIVE); Leukocyte Esterase Urine UA NEGATIVE (NEGATIVE); Nitrite Urine UA NEGATIVE (Negative); Occult Blood Urine UA 2+ (Negative); Protein Urine UA 1+ (Negative); Specific Gravity Urine UA 1.025 (1.000-1.035)
[2021-05-16 05:56] LABS: Add Manual Diff / Slide Review NO; Basophils Absolute Auto 0 /uL (0-100); Basophils Percent Auto 0.1 % (0-2); Eosinophils Absolute Auto 0 /uL (0-450); Eosinophils Percent Auto 0.1 % (2-4); Hemoglobin 10.5 g/dL (13.5-17.5); Lymphocytes Absolute Auto 1100 /uL (1100-4500); Lymphocytes Percent Auto 5.2 % (25-40); Mean Corpuscular Hemoglobin 30.1 PG (26-34); Mean Corpuscular Volume 88.4 fL (80-100); Monocytes Absolute Auto 700 /uL (0-900); Monocytes Percent Auto 3.7 % (3-14); Neutrophils Absolute Auto 18300 /uL (1500-7000); Neutrophils Percent Auto 90.9 % (50-75); Platelet Count 220 X10^3/uL (150-400); Red Cell Distribution Width 13.8 % (11.6-14.8); White Blood Cell Count 20.1 X10^3/uL (4.5-11.0)
[2021-05-16 06:03] LABS: BUN Creatinine Ratio 17.3 (6-22); Blood Urea Nitrogen 14 mg/dL (9-20); Carbon Dioxide 27 mmol/L (22-32); Chloride 105 mmol/L (98-107); Estimated Glomerular Filt Rate > 60.0 mL/min (>60); Glucose 118 mg/dL (70-100); HEMOLYSIS < 15 (0-50); Potassium 3.5 mmol/L (3.4-5.1); Sodium 134 mmol/L (137-145)
[2021-05-16 06:21] LABS: Bacteria Urine None Seen; RBC Urine 0-1/HPF (0-5/HPF); WBC Urine 0-1/HPF (0-5/HPF)
[2021-05-16 06:22] LABS: Culture Indicated Urine Cult Not Indicated
[2021-05-16] MEDS: ACETAMINOPHEN 325 MG TABLET 650 MG PO ×2 (06:33→13:57)
[2021-05-16] MEDS: ENOXAPARIN 40 MG/0.4 ML SYRINGE SUBCUT (08:17)
[2021-05-16] MEDS: VANCOMYCIN 1,250 MG/250 ML PIGGYBACK 250 MG IV ×3 (08:17→23:26)
--- NOTE | 2021-05-16 09:32 | CM.DANOTE ---
Addendum entered by Marietta Childers R.N. 05/16/21 10:52: Discussed patient during team rounds, and he may be able to discharge home tomorrow depending upon cultures. Hunter Jordan, spiritual counselor for hospital, came by to see patient. He stated, concerns are that he is his 's primary caregiver, and tends to her needs. He told Hunter that he may be able to get his sister to stay with her, but may need transportation to [place] from [place]. Hunter indicated, they may be able to help with transportation. Hunter also will reach out to the [facility] for some resources, and will see about food delivery. Original Note: DCP: Case received, EMR reviewed and met with patient. Introduced self and role. Was able to obtain information regarding patient's current living situation. DCP assessment completed with information currently available. Patient is a 41 year old male who admitted yesterday evening to the care of the hospitalist team. PCP: Had been Aleisha [facility], no current PCP. Payer: confirmed: [employer]. Patient came to the hospital via private vehicle secondary to having swelling to his right leg and pain.He had noted increased erythema to his area overlying the knee. He was diagnosed with cellulitis. Met with patient in his room. He is alert and oriented, sitting up in bed. Confirmed that he does reside at the [facility] with his spouse, Marybeth. He is independent, and works at [employer]. He no longer has [facility] as primary provider. He is also on the housing list. Found out that his is a paraplegic. Asked him if there was anyone to take care of her while he is here, or if she has meals. He indicated,there's no one, and no one to get her breakfast today. Called Hunter Jordan and left him a message. Was able to get in touch with Agapito Santos, community certified energy manager. Asked him if he could check on her, and he stated, he would, patient aware. Agapito called back and stated he checked on her, she is ok, hoping her will discharge soon. He did buy her breakfast from [employer]. Let Agapito know to let her know that more should be known at team rounds. P: DCP to continue to follow. Will find out when patient will be able to discharge and will explain situation during rounds. Patient will need primary care resources. Marietta Childers RN/Care Management. Discharge Planning/Care Management CM Discharge Assessment Start: 05/16/21 09:30 Freq: Status: Active Protocol: Document 05/16/21 09:30 (Rec: 05/16/21 09:32 [id number]) Discharge Planning Assessment Assigned Telemetry Nurse Marietta Childers RN/Supervisor [facility] Advance Directives? No History Provided By Patient,Medical Record Prior Living Arrangements Homeless Household Members spouse Type of transporation used prior to Drives own vehicle admit Facility Name Admitted From: Hotel Willing to Return to Facility? Yes Independent with ADL's Yes Is patient alert and oriented? Yes Caregiver for Another Yes: Spouse who is quadraplegic. Barriers to Discharge No Comment As long as he does not need prolonged IV ABO. Discharge Plan Home Transportation Arrangement sELF Referrals Initiated None needed,Other Additional Comment Patient will need primary care resources. Whiteboard Updated in Patient Room with Yes name and ext. # of Telemetry Nurse Review Status In Process Next Review Type Continued Stay Review
[2021-05-16] MEDS: POTASSIUM CHLORIDE 20 MEQ TAB 40 MEQ PO (11:04)
[2021-05-16 11:48] LABS: Creatine Kinase 61 U/L (55-170)
--- NOTE | 2021-05-16 12:43 | DI.CT.S_ITS ---
PROCEDURE: CT LE RT W CON INDICATIONS: Concern for right lower extremity necrotizing fasciitis TECHNIQUE: After the administration of intravenous contrast, 2 mm axial sections acquired of the right lower leg from just above right knee to right ankle, with coronal and sagittal reformats. COMPARISON: None. FINDINGS: Image quality: Excellent. Bones: Right lower leg alignment is anatomic. No fracture or dislocation. No suspicious intraosseous lesion. Osteoarthritic changes are seen in tibiotalar joint with joint space narrowing, subchondral sclerosis and subcortical cyst formation concerning for small osteochondral injuries in weight-bearing portion of distal tibial plafond and adjacent talar dome. Mild tricompartmental osteoarthritis in left knee is also seen. Soft tissues: There is marked soft tissue edema and swelling with overlying skin thickening along anterior and medial aspect of left knee accent Dominic along anterior, medial and lateral portion of left lower leg to the ankle level. Medial and lateral ankle soft tissue swelling is also seen. No discrete peripherally enhancing drainable fluid collection is seen. Fluid is seen extending along anterior fascia of the extensor muscles to the ankle level. Early fasciitis cannot be excluded. No subcutaneous air or abnormal soft tissue calcification is seen. There is moderate right knee joint effusion. A popliteal cyst is also seen. No intra-articular loose bodies. No abnormal density or collection is noted within right lower leg muscles. IMPRESSION: 1. Suggestion of extensive cellulitis extending along anterior and medial aspect of distal thigh, anterior, medial and lateral aspect of right knee and right lower leg to the ankle level. Fluid is seen along anterior muscle fascia of extensor muscles, early fasciitis cannot be excluded. No intramuscular fluid collection or mass. No abnormal intramuscular enhancement. No discrete drainable abscess collection. 2. Osteoarthritic changes in right knee and ankle joints. No fracture or dislocation. No CT evidence of osteomyelitis. Suggestion of osteochondral injuries involving distal tibial plafond and adjacent talar dome. 3. Moderate right knee joint effusion and popliteal cyst. No gross intra-articular loose body. Dictated by: Stepan Clemons M.D. on 05/16/2021 at 15:00 Approved by: Stepan Clemons M.D. on 05/16/2021 at 15:26
--- NOTE | 2021-05-16 13:33 | P.PN_ITS ---
Subjective Subjective Interval history: The patient reports slight improvement of his RLE redness and swelling since admission. He denies any new active complaints. Exam Vital Signs (past 8 hours): - 05/16/21 06:10 05/16/21 06:33 05/16/21 07:00 Temperature 100.0 F H 100.0 F H Pulse Rate 114 H Respiratory Rate 16 Blood Pressure 104/47 L Pulse Oximetry 97 99 05/16/21 09:06 05/16/21 10:28 05/16/21 11:00 Temperature 97.6 F Pulse Rate 91 H Respiratory Rate 14 Blood Pressure 100/70 Pulse Oximetry 97 99 99 Oxygen Delivery Method Room Air Oxygen Flow Rate 0 Narrative Exam Narrative: GEN: laying in bed comfortably upon my entering the room, in no apparent acute distress HEENT: no scleral icterus appreciated, moist mucous membranes NECK: trachea midline, no JVD PULM: clear to auscultation bilaterally CV: tachycardic, no murmurs ABD: soft, non-tender, non-distended, bowel sounds present EXT: right leg warm, erythematuos, tender to plapation, area of erythema begins proximal to the ankle and is superficial, the lower leg is swollen, the area of erythema extends up to the skin overlying the knee, the right knee has no sign ificant pain with motion and range of motion is intact NEURO: awake alert, oriented, does have subjective numbness on bilateral legs PSYCH: pleasant Objective Labs Result Diagrams: 05/16/21 04:59 05/16/21 04:59 Labs: Laboratory Results - last 24 hr 05/15/21 05/15/21 05/15/21 22:00 22:10 22:10 WBC RBC Hgb Hct MCV MCH MCHC RDW Plt Count Neut % (Auto) Lymph % (Auto) [place] % (Auto) Eos % (Auto) Baso % (Auto) Neut # (Auto) Lymph # (Auto) [place] # (Auto) Eos # (Auto) Baso # (Auto) Total Counted Seg Neutrophils % Band Neutrophils % Lymphocytes % (Manual) Monocytes % (Manual) Neutrophils # (Manual) Dohle Bodies RBC Morphology ESR 60 H Sodium Potassium Chloride Carbon Dioxide BUN Creatinine Estimated GFR BUN/Creatinine Ratio Glucose Lactate Calcium Total Bilirubin AST ALT Alkaline Phosphatase Total Creatine Kinase C-Reactive Protein 34.0 H Total Protein Albumin Globulin Albumin/Globulin Ratio Urine Color Urine Appearance Urine pH Ur Specific [place] Urine Protein Urine Glucose (UA) Urine Ketones Urine Occult Blood Urine Nitrate Urine Bilirubin Urine Urobilinogen Ur Leukocyte Esterase Urine RBC Urine WBC Urine Bacteria Ur Culture Indicated? Nasal Screen MRSA (PCR) SARS-CoV-2 (PCR) Negative 05/15/21 05/15/21 05/15/21 22:10 22:10 22:10 WBC 23.6 H RBC 3.85 L Hgb 11.5 L Hct 33.8 L MCV 87.7 MCH 29.9 MCHC 34.1 RDW 13.7 Plt Count 249 Neut % (Auto) Not Reportable Lymph % (Auto) Not Reportable [place] % (Auto) Not Reportable Eos % (Auto) Not Reportable Baso % (Auto) Not Reportable Neut # (Auto) Lymph # (Auto) Not Reportable [place] # (Auto) Not Reportable Eos # (Auto) Baso # (Auto) Not Reportable Total Counted 100 Seg Neutrophils % 88.0 H Band Neutrophils % 5.0 Lymphocytes % (Manual) 3.0 L Monocytes % (Manual) 4.0 Neutrophils # (Manual) 70642 H Dohle Bodies 1+ H RBC Morphology See below ESR Sodium 133 L Potassium 3.6 Chloride 102 Carbon Dioxide 28 BUN 14 Creatinine 0.82 Estimated GFR > 60.0 BUN/Creatinine Ratio 17.1 Glucose 120 H Lactate 0.9 Calcium 8.9 Total Bilirubin 1.1 AST 22 ALT 30 Alkaline Phosphatase 63 Total Creatine Kinase C-Reactive Protein Total Protein 7.4 Albumin 3.8 Globulin 3.6 Albumin/Globulin Ratio 1.1 Urine Color Urine Appearance Urine pH Ur Specific [place] Urine Protein Urine Glucose (UA) Urine Ketones Urine Occult Blood Urine Nitrate Urine Bilirubin Urine Urobilinogen Ur Leukocyte Esterase Urine RBC Urine WBC Urine Bacteria Ur Culture Indicated? Nasal Screen MRSA (PCR) SARS-CoV-2 (PCR) 05/16/21 05/16/21 05/16/21 01:20 04:59 04:59 WBC 20.1 H RBC 3.50 L Hgb 10.5 L Hct 31.0 L MCV 88.4 MCH 30.1 MCHC 34.0 RDW 13.8 Plt Count 220 Neut % (Auto) 90.9 H Lymph % (Auto) 5.2 L [place] % (Auto) 3.7 Eos % (Auto) 0.1 L Baso % (Auto) 0.1 Neut # (Auto) 08055 H Lymph # (Auto) 1100 [place] # (Auto) 700 Eos # (Auto) 0 Baso # (Auto) 0 Total Counted Seg Neutrophils % Band Neutrophils % Lymphocytes % (Manual) Monocytes % (Manual) Neutrophils # (Manual) Dohle Bodies RBC Morphology ESR Sodium 134 L Potassium 3.5 Chloride 105 Carbon Dioxide 27 BUN 14 Creatinine 0.81 Estimated GFR > 60.0 BUN/Creatinine Ratio 17.3 Glucose 118 H Lactate Calcium 8.0 L Total Bilirubin AST ALT Alkaline Phosphatase Total Creatine Kinase C-Reactive Protein Total Protein Albumin Globulin Albumin/Globulin Ratio Urine Color Urine Appearance Urine pH Ur Specific [place] Urine Protein Urine Glucose (UA) Urine Ketones Urine Occult Blood Urine Nitrate Urine Bilirubin Urine Urobilinogen Ur Leukocyte Esterase Urine RBC Urine WBC Urine Bacteria Ur Culture Indicated? Nasal Screen MRSA (PCR) Negative for mrsa SARS-CoV-2 (PCR) 05/16/21 05/16/21 04:59 05:25 WBC RBC Hgb Hct MCV MCH MCHC RDW Plt Count Neut % (Auto) Lymph % (Auto) [place] % (Auto) Eos % (Auto) Baso % (Auto) Neut # (Auto) Lymph # (Auto) [place] # (Auto) Eos # (Auto) Baso # (Auto) Total Counted Seg Neutrophils % Band Neutrophils % Lymphocytes % (Manual) Monocytes % (Manual) Neutrophils # (Manual) Dohle Bodies RBC Morphology ESR Sodium Potassium Chloride Carbon Dioxide BUN Creatinine Estimated GFR BUN/Creatinine Ratio Glucose Lactate Calcium Total Bilirubin AST ALT Alkaline Phosphatase Total Creatine Kinase 61 C-Reactive Protein Total Protein Albumin Globulin Albumin/Globulin Ratio Urine Color Yellow Urine Appearance Clear Urine pH 5.0 Ur Specific [place] 1.025 Urine Protein 1+ H Urine Glucose (UA) Negative Urine Ketones Trace H Urine Occult Blood 2+ H Urine Nitrate Negative Urine Bilirubin Negative Urine Urobilinogen 1.0 Ur Leukocyte Esterase Negative Urine RBC 0-1/hpf Urine WBC 0-1/hpf Urine Bacteria None seen Ur Culture Indicated? Cult not indicated Nasal Screen MRSA (PCR) SARS-CoV-2 (PCR) [facility] Medical History Patient denies medical problems Social History household members: spouse Smoking Status: Never smoker Assessment & Plan Assessment & Plan narrative: Mr. Sidhu is a 41M who presents with 2 days of worsening leg pain found to have a right leg cellulitis. 1. Sepsis, likely secondary to RLE cellulitis, acute -patient presented with tachycardia, leukocytosis of 23, normal lactate, however per sepsis 3 has no organ dysfunction -received IV fluid 30cc/kg, ordered for blood cultures and antibiotics -continue IV vancomycin -monitor spread closely, currently no joint involvement on right knee -demarcate area of cellulitis -follow up cultures-CT RLE ordered to evaluate for possible necrotizing fasciitis, pyomyositis 2. Anemia, mild -etiology not clear -no indication for transfusion -would benefit from follow up with PCP -trend daily hemoglobin 3. Bilateral leg numbness, chronic -no saddle anesthesia, no incontinence, no objective weakness on exam -could consider back imaging or further workup was outpatient 4. Obesity -encourage lifestyle changes -establish PCP care 5. Homeless -lives in [facility] [place] - follow up CODE: Full Proxy: Marybeth DuarteWildaNahum, I have utilized all available resources to reconcile patient's home medications. Time Spent With Patient Critical Care time: I spent a total of [] minutes of critical care time on this patient's care today; this time is exclusive of procedural time. Quality VTE Deep Vein Thrombosis/Pulmonary Embolism Present on Admission: No MIPS - Admit I confirm the patient?s Advance Care Plan is present, Code status is documented, Surrogate decision maker is in patient?s record [If Yes, STOP here]: Yes
--- NOTE | 2021-05-16 16:18 | P.HP_ITS ---
History of Present Illness History of Present Illness Date Patient Seen: 05/16/21 Time Patient Seen: 16:20 Date of Onset of Symptoms: 05/13/21 Chief complaint: rt leg is unable to bear weight Narrative: This is a 41-year-old gentleman who noted a couple day history of increasing right calf pain. He does have a history of cellulitis in the past require a short-term admission. He also says that he has had staph infections in the past including 1 in his left hand which required surgical intervention. He notes significant pain into his right leg. He was seen in the emergency room where he had an ultrasound which was negative for DVT but was admitted with a cellulitis and swelling along his right tibia. Orthopedic consultation was called to evaluate for fasciitis. Patient History Medical History Patient denies medical problems Family & Social History Social History: household members spouse Prior Living Arrangements Homeless Safety & Behavioral: Feels Safe in Current Yes Environment Been Physically Hurt or No Threatened By a Person Suicidal Ideation Description None Suicide Plan Description No Plan Tobacco & Substance use: Smoking Status Never smoker alcohol intake frequency holiday/special occasion Substance Use Type does not use Meds Home Medications and Allergies Home Medications Medication Instructions Recorded Confirmed Type gabapentin 100 mg capsule 100 mg PO TID #90 cap 05/03/21 05/15/21 Rx (Neurontin) Allergies Allergy/AdvReac Type Severity Reaction Status Date / Time No Known Drug Allergies Allergy Verified 05/03/21 15:59 Review of Systems Review of Systems Narrative: He notes chronic neuropathy, he says he has a borderline diabetic, he denies problems other than numbness in bilateral lower extremities and bilateral upper extremities. He has had some fevers and chills, he denies a history of previous blood clots, there was no specific injury Exam Vital Signs (past 8 hours): - 05/16/21 09:06 05/16/21 10:28 05/16/21 11:00 Temperature 97.6 F Pulse Rate 91 H Respiratory Rate 14 Blood Pressure 100/70 Pulse Oximetry 97 99 99 05/16/21 13:50 05/16/21 13:57 Temperature 100.1 F H 100.1 F H Pulse Rate 93 H Respiratory Rate 18 Blood Pressure 130/74 Pulse Oximetry 99 Oxygen Delivery Method Room Air Oxygen Flow Rate 0 Narrative Exam Narrative: He is resting quietly in bed sleeping but he is easily arousable he is alert he is oriented is fair range of motion in his neck lungs are clear cor regular rate and rhythm examination of his left upper extremity minimal erythema, some numbness in bilateral hands, right lower extremity knee range of motion is 0-80 degrees there is mild joint effusion there is no erythema over the knee and there was fairly minimal pain with gentle range of motion in his knee, the right calf there is diffuse swelling of the right calf with fairly mild erythema he does have focal tenderness over the anterior tibia and anterolateral compartment he is able to fire his toe flexors and extensors tibialis anterior and gas trocsoleus with some pain with range of motion, posterior calf to soft but there is focal tenderness, there is no crepitation to palpation and there is no obvious abscess Objective Labs Result Diagrams: 05/16/21 04:59 05/16/21 04:59 Labs: Laboratory Results - last 24 hr 05/15/21 05/15/21 05/15/21 22:00 22:10 22:10 WBC RBC Hgb Hct MCV MCH MCHC RDW Plt Count Neut % (Auto) Lymph % (Auto) [place] % (Auto) Eos % (Auto) Baso % (Auto) Neut # (Auto) Lymph # (Auto) [place] # (Auto) Eos # (Auto) Baso # (Auto) Total Counted Seg Neutrophils % Band Neutrophils % Lymphocytes % (Manual) Monocytes % (Manual) Neutrophils # (Manual) Dohle Bodies RBC Morphology ESR 60 H Sodium Potassium Chloride Carbon Dioxide BUN Creatinine Estimated GFR BUN/Creatinine Ratio Glucose Lactate Calcium Total Bilirubin AST ALT Alkaline Phosphatase Total Creatine Kinase C-Reactive Protein 34.0 H Total Protein Albumin Globulin Albumin/Globulin Ratio Urine Color Urine Appearance Urine pH Ur Specific [place] Urine Protein Urine Glucose (UA) Urine Ketones Urine Occult Blood Urine Nitrate Urine Bilirubin Urine Urobilinogen Ur Leukocyte Esterase Urine RBC Urine WBC Urine Bacteria Ur Culture Indicated? Nasal Screen MRSA (PCR) SARS-CoV-2 (PCR) Negative 05/15/21 05/15/21 05/15/21 22:10 22:10 22:10 WBC 23.6 H RBC 3.85 L Hgb 11.5 L Hct 33.8 L MCV 87.7 MCH 29.9 MCHC 34.1 RDW 13.7 Plt Count 249 Neut % (Auto) Not Reportable Lymph % (Auto) Not Reportable [place] % (Auto) Not Reportable Eos % (Auto) Not Reportable Baso % (Auto) Not Reportable Neut # (Auto) Lymph # (Auto) Not Reportable [place] # (Auto) Not Reportable Eos # (Auto) Baso # (Auto) Not Reportable Total Counted 100 Seg Neutrophils % 88.0 H Band Neutrophils % 5.0 Lymphocytes % (Manual) 3.0 L Monocytes % (Manual) 4.0 Neutrophils # (Manual) 39708 H Dohle Bodies 1+ H RBC Morphology See below ESR Sodium 133 L Potassium 3.6 Chloride 102 Carbon Dioxide 28 BUN 14 Creatinine 0.82 Estimated GFR > 60.0 BUN/Creatinine Ratio 17.1 Glucose 120 H Lactate 0.9 Calcium 8.9 Total Bilirubin 1.1 AST 22 ALT 30 Alkaline Phosphatase 63 Total Creatine Kinase C-Reactive Protein Total Protein 7.4 Albumin 3.8 Globulin 3.6 Albumin/Globulin Ratio 1.1 Urine Color Urine Appearance Urine pH Ur Specific [place] Urine Protein Urine Glucose (UA) Urine Ketones Urine Occult Blood Urine Nitrate Urine Bilirubin Urine Urobilinogen Ur Leukocyte Esterase Urine RBC Urine WBC Urine Bacteria Ur Culture Indicated? Nasal Screen MRSA (PCR) SARS-CoV-2 (PCR) 05/16/21 05/16/21 05/16/21 01:20 04:59 04:59 WBC 20.1 H RBC 3.50 L Hgb 10.5 L Hct 31.0 L MCV 88.4 MCH 30.1 MCHC 34.0 RDW 13.8 Plt Count 220 Neut % (Auto) 90.9 H Lymph % (Auto) 5.2 L [place] % (Auto) 3.7 Eos % (Auto) 0.1 L Baso % (Auto) 0.1 Neut # (Auto) 25798 H Lymph # (Auto) 1100 [place] # (Auto) 700 Eos # (Auto) 0 Baso # (Auto) 0 Total Counted Seg Neutrophils % Band Neutrophils % Lymphocytes % (Manual) Monocytes % (Manual) Neutrophils # (Manual) Dohle Bodies RBC Morphology ESR Sodium 134 L Potassium 3.5 Chloride 105 Carbon Dioxide 27 BUN 14 Creatinine 0.81 Estimated GFR > 60.0 BUN/Creatinine Ratio 17.3 Glucose 118 H Lactate Calcium 8.0 L Total Bilirubin AST ALT Alkaline Phosphatase Total Creatine Kinase C-Reactive Protein Total Protein Albumin Globulin Albumin/Globulin Ratio Urine Color Urine Appearance Urine pH Ur Specific [place] Urine Protein Urine Glucose (UA) Urine Ketones Urine Occult Blood Urine Nitrate Urine Bilirubin Urine Urobilinogen Ur Leukocyte Esterase Urine RBC Urine WBC Urine Bacteria Ur Culture Indicated? Nasal Screen MRSA (PCR) Negative for mrsa SARS-CoV-2 (PCR) 05/16/21 05/16/21 04:59 05:25 WBC RBC Hgb Hct MCV MCH MCHC RDW Plt Count Neut % (Auto) Lymph % (Auto) [place] % (Auto) Eos % (Auto) Baso % (Auto) Neut # (Auto) Lymph # (Auto) [place] # (Auto) Eos # (Auto) Baso # (Auto) Total Counted Seg Neutrophils % Band Neutrophils % Lymphocytes % (Manual) Monocytes % (Manual) Neutrophils # (Manual) Dohle Bodies RBC Morphology ESR Sodium Potassium Chloride Carbon Dioxide BUN Creatinine Estimated GFR BUN/Creatinine Ratio Glucose Lactate Calcium Total Bilirubin AST ALT Alkaline Phosphatase Total Creatine Kinase 61 C-Reactive Protein Total Protein Albumin Globulin Albumin/Globulin Ratio Urine Color Yellow Urine Appearance Clear Urine pH 5.0 Ur Specific [place] 1.025 Urine Protein 1+ H Urine Glucose (UA) Negative Urine Ketones Trace H Urine Occult Blood 2+ H Urine Nitrate Negative Urine Bilirubin Negative Urine Urobilinogen 1.0 Ur Leukocyte Esterase Negative Urine RBC 0-1/hpf Urine WBC 0-1/hpf Urine Bacteria None seen Ur Culture Indicated? Cult not indicated Nasal Screen MRSA (PCR) SARS-CoV-2 (PCR) CT scan shows evidence of edema in the subcutaneous tissues of the left leg, mild joint effusion left knee no evidence of gas in the subcutaneous tissues. Assessment & Plan Assessment and plan (1) Cellulitis of leg, right: Status: Acute (2) Neuropathy: Status: Acute Plan He has obvious cellulitis and swelling in the subcutaneous tissues in his right leg. There is no focal abscess. Clinically he does not have symptoms suggestive of a septic knee. There is clear cellulitis and lower extremity edema but I think it is unlikely that he has a necrotizing fasciitis. He does have an elevated white count. I think it is appropriate to treat him with IV antibiotics and I concur with broadening the coverage. We will watch him clinically as he has a history of staph infections in the past at this point there is no evidence of an abscess or drainable lesion. Time Spent With Patient Critical Care time: I spent a total of [] minutes of critical care time on this patient's care today; this time is exclusive of procedural time. Quality VTE Deep Vein Thrombosis/Pulmonary Embolism Present on Admission: No
[2021-05-16] MEDS: CLINDAMYCIN 900 MG/50 ML PIGGYBACK 50 MG IV (17:46)
[2021-05-16] MEDS: PIPERACILLIN/TAZO 3.375 GM in SODIUM CHLORIDE 0.9% 100 ML 25 ML IV (18:52)
--- NOTE | 2021-05-16 19:47 | PC.NURSE ---
A&Ox3. VSS, did have a temp 100.1 this afternoon and was given 650 mg tylenol, temp dropped to 98.8. Patient reamied dyaphoretic throughout the shift. Complained of having 8/10 headache and leg pain at 16:20 and was given PRN oxy 5mg. Patient slept on and off the rest of this shift. Iv abx infused. Minimal appetite. Ns going at 100. Call light within reach, bed low.
[2021-05-16] MEDS: SODIUM CHLORIDE 0.9% FLUSH 10 ML IV (23:26)
[2021-05-17] VITALS (17 sets, daily range): BP systolic 111–127; BP diastolic 47–78; PULSE 91–107; RESP 14–20; TEMP 36.7–37.8; O2SAT 95–99
[2021-05-17] MEDS: CLINDAMYCIN 900 MG/50 ML PIGGYBACK 50 MG IV ×3 (00:26→18:27)
[2021-05-17] MEDS: OXYCODONE IR 5 MG TABLET PO ×3 (00:26→15:43)
[2021-05-17] MEDS: ACETAMINOPHEN 325 MG TABLET 650 MG PO ×2 (00:27→15:43)
[2021-05-17] MEDS: PIPERACILLIN/TAZO 3.375 GM in SODIUM CHLORIDE 0.9% 100 ML 25 ML IV ×3 (01:45→18:55)
[2021-05-17 05:10] LABS: Add Manual Diff / Slide Review NO; Basophils Absolute Auto 0 /uL (0-100); Basophils Percent Auto 0.2 % (0-2); Eosinophils Absolute Auto 0 /uL (0-450); Eosinophils Percent Auto 0.1 % (2-4); Hemoglobin 10.2 g/dL (13.5-17.5); Lymphocytes Absolute Auto 1100 /uL (1100-4500); Lymphocytes Percent Auto 6.7 % (25-40); Mean Corpuscular HGB Conc 33.9 % (30-36); Mean Corpuscular Hemoglobin 30.2 PG (26-34); Mean Corpuscular Volume 88.9 fL (80-100); Monocytes Absolute Auto 800 /uL (0-900); Monocytes Percent Auto 4.9 % (3-14); Neutrophils Absolute Auto 14700 /uL (1500-7000); Neutrophils Percent Auto 88.1 % (50-75); Platelet Count 251 X10^3/uL (150-400); Red Blood Cell Count 3.38 X10^6/uL (4.5-5.9); Red Cell Distribution Width 13.8 % (11.6-14.8); White Blood Cell Count 16.7 X10^3/uL (4.5-11.0)
[2021-05-17 05:27] LABS: BUN Creatinine Ratio 14.8 (6-22); Blood Urea Nitrogen 13 mg/dL (9-20); Calcium 8.2 mg/dL (8.4-10.2); Carbon Dioxide 26 mmol/L (22-32); Chloride 108 mmol/L (98-107); Estimated Glomerular Filt Rate > 60.0 mL/min (>60); Glucose 94 mg/dL (70-100); HEMOLYSIS < 15 (0-50); Potassium 3.9 mmol/L (3.4-5.1); Sodium 137 mmol/L (137-145)
[2021-05-17] MEDS: SODIUM CHLORIDE 0.9% 1,000 ML 150 ML IV (05:42)
[2021-05-17] MEDS: VANCOMYCIN TROUGH 1 REQUEST MISC (07:50)
[2021-05-17 08:21] LABS: Vancomycin Trough 7.6 ug/mL (10-20)
--- NOTE | 2021-05-17 08:46 | PM.PN.1 ---
Subjective Subjective Date Patient Seen: 05/17/21 Time Patient Seen: 08:46 Interval history: Patient states his leg pain is mild. He notes fever and chills. Some nausea no vomiting. Otherwise without complaints. Exam Vital Signs (past 8 hours): - 05/17/21 03:00 05/17/21 05:00 05/17/21 08:29 Temperature 98.6 F Pulse Rate 94 H Respiratory Rate 14 Blood Pressure 115/64 Pulse Oximetry 99 96 99 Oxygen Delivery Method Room Air Oxygen Flow Rate 0 Narrative Exam Narrative: 41-year-old male resting comfortably in bed in no apparent distress. Erythema and edema right lower extremity. The margins have been marked and erythema seems be improved compared to the markings. Motor functions intact. Sensation grossly intact to light touch. Const General: cooperative Orientation: alert and oriented x3 HENMT Head: atraumatic Eyes Conjunctivae: conjunctivae normal Resp Effort & Inspection: normal respiratory effort and able to speak in complete sentences Neuro Cognition: normal cognition Speech: speech normal Objective Labs Result Diagrams: 05/17/21 05:00 05/17/21 05:00 Labs: Laboratory Results - last 24 hr 05/16/21 05/17/21 05/17/21 04:59 05:00 05:00 WBC 16.7 H RBC 3.38 L Hgb 10.2 L Hct 30.0 L MCV 88.9 MCH 30.2 MCHC 33.9 RDW 13.8 Plt Count 251 Neut % (Auto) 88.1 H Lymph % (Auto) 6.7 L [place] % (Auto) 4.9 Eos % (Auto) 0.1 L Baso % (Auto) 0.2 Neut # (Auto) 65445 H Lymph # (Auto) 1100 [place] # (Auto) 800 Eos # (Auto) 0 Baso # (Auto) 0 Sodium 137 Potassium 3.9 Chloride 108 H Carbon Dioxide 26 BUN 13 Creatinine 0.88 Estimated GFR > 60.0 BUN/Creatinine Ratio 14.8 Glucose 94 Calcium 8.2 L Magnesium 2.0 Total Creatine Kinase 61 Vancomycin Trough 05/17/21 07:38 WBC RBC Hgb Hct MCV MCH MCHC RDW Plt Count Neut % (Auto) Lymph % (Auto) [place] % (Auto) Eos % (Auto) Baso % (Auto) Neut # (Auto) Lymph # (Auto) [place] # (Auto) Eos # (Auto) Baso # (Auto) Sodium Potassium Chloride Carbon Dioxide BUN Creatinine Estimated GFR BUN/Creatinine Ratio Glucose Calcium Magnesium Total Creatine Kinase Vancomycin Trough 7.6 L Lactate was 0.9 on May 15, 2021 White count today is 16.7 down from 20.1 on May 16, 2021 Preliminary blood cultures show no growth after 24 hours [facility] Medical History Patient denies medical problems Social History household members: spouse Smoking Status: Never smoker Assessment & Plan Assessment & Plan narrative: Currently without evidence an abscess or drainable lesion Continue IV antibiotics Time Spent With Patient Time with patient: less than 30 minutes Critical Care time: I spent a total of [] minutes of critical care time on this patient's care today; this time is exclusive of procedural time. Quality VTE Deep Vein Thrombosis/Pulmonary Embolism Present on Admission: No
[2021-05-17] MEDS: ENOXAPARIN 40 MG/0.4 ML SYRINGE SUBCUT (09:44)
--- NOTE | 2021-05-17 12:27 | DI.MRI.S_ITS ---
PROCEDURE: MR HEAD/BRAIN WO/W CON INDICATIONS: Concern for meningitis TECHNIQUE: Noncontrast axial T1 spin echo, axial T2 fast spin echo, sagittal and axial FLAIR, coronal T2 fast spin echo, axial gradient echo, axial diffusion and ADC through the brain. After the administration of contrast, axial and coronal T1 spin echo with fat saturation through the brain. COMPARISON: None. FINDINGS: Image quality: Excellent. CSF spaces: Basal cisterns are patent. No extra-axial fluid collections. Ventricles are normal in size and shape. Brain: No midline shift. No intracranial bleeds or masses. No abnormal intracranial enhancement. There is cerebral volume loss for age. There is periventricular white matter chronic small vessel ischemic change. The brainstem appears normal. Diffusion-weighted images demonstrate no acute ischemic insults. No chronic ischemic insults. Normal intravascular flow voids are present. Skull and face: Calvarial marrow is normal in signal. Orbits appear normal. Sinuses: Sinuses and mastoids appear clear. IMPRESSION: No acute process. No recent infarct. No evidence of meningitis. Dictated by: Norm Sweet M.D. on 05/17/2021 at 15:30 Approved by: Norm Sweet M.D. on 05/17/2021 at 15:31
[2021-05-17] MEDS: KETOROLAC 30 MG/ML VIAL IV (12:50)
--- NOTE | 2021-05-17 14:50 | PC.NURSE ---
Day shift: Pt off unit for MRI at approx 1450.
--- NOTE | 2021-05-17 15:29 | P.PN_ITS ---
Subjective Subjective Interval history: The patient reports overall improvement in his RLE pain. However, he complains of some nausea this morning. He also complains of a headache. Describes it as tense and it's bilateral. Denies any radiation. Exam Vital Signs (past 8 hours): - 05/17/21 08:29 05/17/21 08:50 05/17/21 11:00 Temperature 99.5 F Pulse Rate 96 H Respiratory Rate 18 Blood Pressure 123/69 Pulse Oximetry 99 96 96 05/17/21 12:51 05/17/21 12:53 05/17/21 12:55 Temperature 100.1 F H Pulse Rate 107 H Respiratory Rate 20 Blood Pressure 127/78 Pulse Oximetry 97 96 Oxygen Delivery Method Room Air Oxygen Flow Rate 0 Narrative Exam Narrative: GEN: laying in bed comfortably upon my entering the room, in no apparent acute distress HEENT: no scleral icterus appreciated, moist mucous membranes NECK: trachea midline, no JVD PULM: clear to auscultation bilaterally CV: tachycardic, no murmurs ABD: soft, non-tender, non-distended, bowel sounds present EXT: right leg warm, erythematuos, tender to plapation, area of erythema begins proximal to the ankle and is superficial, the lower leg is swollen, the area of erythema extends up to the skin overlying the knee, the right knee has no significant pain with motion and range of motion is intact NEURO: awake alert, oriented, CN II-XII grossly intact, no grossly focal n eurological deficits appreciated PSYCH: pleasant Objective Labs Result Diagrams: 05/17/21 05:00 05/17/21 05:00 Labs: Laboratory Results - last 24 hr 05/17/21 05/17/21 05/17/21 05:00 05:00 07:38 WBC 16.7 H RBC 3.38 L Hgb 10.2 L Hct 30.0 L MCV 88.9 MCH 30.2 MCHC 33.9 RDW 13.8 Plt Count 251 Neut % (Auto) 88.1 H Lymph % (Auto) 6.7 L [place] % (Auto) 4.9 Eos % (Auto) 0.1 L Baso % (Auto) 0.2 Neut # (Auto) 80856 H Lymph # (Auto) 1100 [place] # (Auto) 800 Eos # (Auto) 0 Baso # (Auto) 0 Sodium 137 Potassium 3.9 Chloride 108 H Carbon Dioxide 26 BUN 13 Creatinine 0.88 Estimated GFR > 60.0 BUN/Creatinine Ratio 14.8 Glucose 94 Calcium 8.2 L Magnesium 2.0 Vancomycin Trough 7.6 L PFS Medical History Patient denies medical problems Social History household members: spouse Smoking Status: Never smoker Assessment & Plan Assessment & Plan narrative: Mr. Sidhu is a 41yo male who presents with 2 days of worsening leg pain found to have a RLE cellulitis. 1. Sepsis, as evidenced by tachycardia and leukocytosis, but without organ dysfunction, likely secondary to RLE cellulitis-received IV fluid 30cc/kg, o rdered for blood cultures and antibiotics -continue IV vancomycin, started on May 15 2. RLE cellulitis, with suspicion for early necrotizing fasciitis -CT of RLE shows possible necrotizing fasciitis -appreciate orthopedic consult recommendations -orthopedics does not believe this to be true necrotizing fasciitis, and will continue to follow for now -broadened his coverage to include anti-toxin IV clindamycin (started on May 16), and IV Zosyn (started on May 16), in case this is Group A or Group C strep 3. Anemia, mild -etiology not clear -no indication for transfusion -would benefit from follow up with PCP -trend daily hemoglobin 4. Bilateral leg numbness, chronic -no saddle anesthesia, no incontinence, no objective weakness on exam -could consider back imaging or further workup was outpatient 5. Obesity -encourage lifestyle changes -establish PCP care 6. Homeless -lives in [facility] follow up VTE prophylaxis: Lovenox 40 mg daily Time Spent With Patient Critical Care time: I spent a total of [] minutes of critical care time on this patient's care today; this time is exclusive of procedural time. Quality VTE Deep Vein Thrombosis/Pulmonary Embolism Present on Admission: No
[2021-05-17] MEDS: VANCOMYCIN 2,000 MG/400 ML PIGGYBACK 200 MG IV (15:44)
[2021-05-18] VITALS (11 sets, daily range): BP systolic 114–140; BP diastolic 69–75; PULSE 83–105; RESP 16–19; TEMP 36.3–37.1; O2SAT 94–99
[2021-05-18] MEDS: VANCOMYCIN 2,000 MG/400 ML PIGGYBACK 200 MG IV ×3 (00:35→16:58)
[2021-05-18] MEDS: CLINDAMYCIN 900 MG/50 ML PIGGYBACK 50 MG IV ×3 (02:15→21:02)
[2021-05-18] MEDS: ACETAMINOPHEN 325 MG TABLET 650 MG PO ×2 (03:39→09:42)
[2021-05-18] MEDS: PIPERACILLIN/TAZO 3.375 GM in SODIUM CHLORIDE 0.9% 100 ML 25 ML IV ×3 (03:44→20:32)
[2021-05-18 06:04] LABS: Add Manual Diff / Slide Review NO; Basophils Absolute Auto 0 /uL (0-100); Basophils Percent Auto 0.2 % (0-2); Eosinophils Absolute Auto 100 /uL (0-450); Eosinophils Percent Auto 0.6 % (2-4); Hematocrit 28.9 % (41-53); Hemoglobin 9.7 g/dL (13.5-17.5); Lymphocytes Absolute Auto 900 /uL (1100-4500); Lymphocytes Percent Auto 6.3 % (25-40); Mean Corpuscular HGB Conc 33.6 % (30-36); Mean Corpuscular Hemoglobin 29.6 PG (26-34); Monocytes Absolute Auto 1000 /uL (0-900); Neutrophils Absolute Auto 12700 /uL (1500-7000); Neutrophils Percent Auto 85.9 % (50-75); Platelet Count 299 X10^3/uL (150-400); Red Blood Cell Count 3.28 X10^6/uL (4.5-5.9); Red Cell Distribution Width 13.8 % (11.6-14.8); White Blood Cell Count 14.8 X10^3/uL (4.5-11.0)
[2021-05-18 06:15] LABS: Blood Urea Nitrogen 16 mg/dL (9-20); Calcium 8.4 mg/dL (8.4-10.2); Carbon Dioxide 27 mmol/L (22-32); Chloride 107 mmol/L (98-107); Estimated Glomerular Filt Rate > 60.0 mL/min (>60); Glucose 108 mg/dL (70-100); HEMOLYSIS < 15 (0-50); Potassium 4.1 mmol/L (3.4-5.1); Sodium 139 mmol/L (137-145)
--- NOTE | 2021-05-18 07:47 | P.PN_ITS ---
Subjective Subjective Date Patient Seen: 05/18/21 Interval history: He is seen in his room today to follow-up his headache and his cellulitis. He complains of feeling worse today and describes a frontal headache with severe photophobia, nuchal rigidity and low back pain. I arranged with him to do a spinal tap as he described having a fever recently also. The fever could certainly have been more likely from the cellulitis but the constellation of symptoms was concerning. Before we could do the LP he went for an extended period of time into the MRI machine and and when he returned he said the Toradol had resolved the headache, his neck was no longer stiff, etc. so the LP has been placed on hold. The MRI scans show extensive areas of cellulitis but no abscesses. His ankle, foot and lower leg were scanned. Exam Vital Signs (past 8 hours): - 05/18/21 00:00 05/18/21 00:25 05/18/21 03:48 Temperature 98 F 97.9 F Pulse Rate 100 H 105 H Respiratory Rate 19 19 Blood Pressure 125/72 114/74 Pulse Oximetry 96 96 94 05/18/21 04:00 Temperature Pulse Rate Respiratory Rate Blood Pressure Pulse Oximetry 96 Oxygen Delivery Method Room Air Oxygen Flow Rate 0 Narrative Exam Narrative: Alert and oriented x3. On my 1st exam today he was in severe distress from headache and nuchal rigidity. On my 2nd exam today he barely remember that, was moving his neck normally and the headache was gone. Heart is regular rate and rhythm without murmur Lungs are clear to auscultation bilaterally Extremities have significant cellulitic edema on the right lower leg and foot. The redness is quite minimized at this point. Objective Labs Result Diagrams: 05/18/21 05:06 05/18/21 05:06 Labs: Laboratory Results - last 24 hr 05/17/21 05/18/21 05/18/21 07:38 05:06 05:06 WBC 14.8 H RBC 3.28 L Hgb 9.7 L Hct 28.9 L MCV 88.0 MCH 29.6 MCHC 33.6 RDW 13.8 Plt Count 299 Neut % (Auto) 85.9 H Lymph % (Auto) 6.3 L [place] % (Auto) 7.0 Eos % (Auto) 0.6 L Baso % (Auto) 0.2 Neut # (Auto) 29866 H Lymph # (Auto) 900 L [place] # (Auto) 1000 H Eos # (Auto) 100 Baso # (Auto) 0 Sodium 139 Potassium 4.1 Chloride 107 Carbon Dioxide 27 BUN 16 Creatinine 0.89 Estimated GFR > 60.0 BUN/Creatinine Ratio 18.0 Glucose 108 H Calcium 8.4 Magnesium 2.0 Vancomycin Trough 7.6 L [facility] Medical History Patient denies medical problems Social History household members: spouse Smoking Status: Never smoker Assessment & Plan Assessment & Plan narrative: Mr. Sidhu is a 41yo male who presents with 2 days of worsening leg pain found to have a RLE cellulitis. 1. Sepsis, as evidenced by tachycardia and leukocytosis, but without organ dysfunction, likely secondary to RLE cellulitis-received IV fluid 30cc/kg, ordered for blood cultures and antibiotics -continue IV vancomycin, started on May 15 2. RLE cellulitis, with suspicion for early necrotizing fasciitis -CT of RLE showed possible necrotizing fasciitis -appreciate orthopedic consult recommendations -orthopedics does not believe this to be true necrotizing fasciitis, and will continue to follow for now -broadened his coverage to include anti-toxin IV clindamycin (started on May 16), and IV Zosyn (started on May 16), in case this is Group A or Group C strep -orthopedics ordered MRI of his right ankle, right foot and right lower leg. No areas of cellulitis or obvious necrotizing fluid collections are seen. 3. Anemia, mild -etiology not clear -no indication for transfusion -would benefit from follow up with PCP -trend daily hemoglobin -9.7 hemoglobin on 05/18. 4. Bilateral leg numbness, chronic -no saddle anesthesia, no incontinence, no objective weakness on exam -could consider back imaging or further workup as outpatient 5. Obesity -encourage lifestyle changes -establish PCP care 6. Homeless -lives in [facility] - follow up 7. Headache -normal MRI brain 05/17 -constellation of severe headache, no history of migraines, nuchal rigidity and low back pain along with history of recent fevers prompted the plan for lumbar puncture to obtain CSF today 05/18 After MRI of the leg, taking several hours in the scanner, his headache had resolved and that plan has been deferred. VTE prophylaxis: Lovenox 40 mg daily Time Spent With Patient Critical Care time: I spent a total of [] minutes of critical care time on this patient's care today; this time is exclusive of procedural time. Quality VTE Deep Vein Thrombosis/Pulmonary Embolism Present on Admission: No
[2021-05-18] MEDS: ENOXAPARIN 40 MG/0.4 ML SYRINGE SUBCUT (08:14)
--- NOTE | 2021-05-18 10:50 | PM.PN.1 ---
Subjective Subjective Date Patient Seen: 05/18/21 Time Patient Seen: 10:50 Interval history: Right leg pain is moderate. Patient reports slight improvement since yesterday. Patient reports no nausea or vomiting. Denies fever or chills. Exam Vital Signs (past 8 hours): - 05/18/21 03:48 05/18/21 04:00 05/18/21 07:50 Temperature 97.9 F 98.0 F Pulse Rate 105 H 88 Respiratory Rate 19 18 Blood Pressure 114/74 140/75 Pulse Oximetry 94 96 96 Oxygen Delivery Method Room Air Oxygen Flow Rate 0 Narrative Exam Narrative: 41-year-old male resting comfortably in bed in no apparent distress. The erythema and swelling has diminished along the proximal abrams. There is a skin marking distally and the erythema and swelling had advanced distally into the medial ankle and foot. There is no fluctuance noted. Minimal tenderness in this area. Able to move toes without pain. Sensation grossly intact to light touch is distally. Const General: cooperative Orientation: alert and oriented x3 Resp Effort & Inspection: normal respiratory effort and able to speak in complete sentences Objective Labs Result Diagrams: 05/18/21 05:06 05/18/21 05:06 Labs: Laboratory Results - last 24 hr 05/18/21 05/18/21 05:06 05:06 WBC 14.8 H RBC 3.28 L Hgb 9.7 L Hct 28.9 L MCV 88.0 MCH 29.6 MCHC 33.6 RDW 13.8 Plt Count 299 Neut % (Auto) 85.9 H Lymph % (Auto) 6.3 L [place] % (Auto) 7.0 Eos % (Auto) 0.6 L Baso % (Auto) 0.2 Neut # (Auto) 66597 H Lymph # (Auto) 900 L [place] # (Auto) 1000 H Eos # (Auto) 100 Baso # (Auto) 0 Sodium 139 Potassium 4.1 Chloride 107 Carbon Dioxide 27 BUN 16 Creatinine 0.89 Estimated GFR > 60.0 BUN/Creatinine Ratio 18.0 Glucose 108 H Calcium 8.4 Magnesium 2.0 PFSH Medical History Patient denies medical problems Social History household members: spouse Smoking Status: Never smoker Assessment & Plan Assessment and plan (1) Cellulitis of leg, right: Status: Acute Plan Reviewed with Dr. Oliveros and she recommends MRI with and without contrast right lower extremity to include tib-fib, ankle and foot. Patient will be NPO for now. Continue IV antibiotics per hospitalist. Assessment & Plan narrative: Reviewed with Dr. Oliveros and she recommends MRI with and without contrast right lower extremity to include right tib-fib, ankle and foot. Patient will be NPO for now Continue antibiotics per hospitalist. COVID-19 COVID-19 status: Negative Result date/Date tested (Pos, Neg/Pending): 06/04/21 Time Spent With Patient Time with patient: less than 30 minutes Critical Care time: I spent a total of [] minutes of critical care time on this patient's care today; this time is exclusive of procedural time. Quality VTE Deep Vein Thrombosis/Pulmonary Embolism Present on Admission: No
[2021-05-18] MEDS: KETOROLAC 30 MG/ML VIAL IV ×2 (10:54→20:32)
--- NOTE | 2021-05-18 11:12 | DI.MRI.S_ITS ---
PROCEDURE: MR FOOT RT WO/W CON INDICATIONS: Cellulitis TECHNIQUE: Noncontrast coronal T1 spin echo and STIR, sagittal T1 spin echo with fat saturation and STIR, axial T1 spin echo and T2 fast spin echo with fat saturation. After the administration of contrast, axial/sagittal/coronal T1 spin echo with fat saturation through the right forefoot. COMPARISON: [facility], MR, MR ANKLE RT WO/W CON, 05/18/2021, 13:42. [facility], MR, MR LOWER LEG RT WO/W CON, 05/18/2021, 12:54. [facility], CT, CT LE RT W CON, 05/16/2021, 13:08. FINDINGS: Image quality: Limited by motion artifact. Bones: Along the medial aspect of the distal 1st metatarsal, there is focal signal abnormality seen, with decreased T1 weighted signal and increased T2 weighted signal. Mild enhancement can be seen within this region, as on series 12, image 18. No other focal bony signal abnormalities can be seen. Soft tissues: Generalized soft tissue thickening and edema can be seen, with generalized enhancement. No drainable abscess is seen. No findings of the involvement within the muscles can be seen. IMPRESSION: Generalized cellulitis is seen, without drainable abscess. No buzz findings of muscle involvement or necrotizing fasciitis can be seen. There is focal signal abnormality seen involving the distal medial 1st metatarsal. While osteomyelitis is possible, this is felt more likely to be related to a chronic lesion. Please correlate with gout at this site. Please correlate with focal tenderness and physical examination findings. If clinically appropriate, please consider short-term follow-up MRI. Dictated by: Ramesh Monk M.D. on 05/18/2021 at 16:26 Approved by: Ramesh Monk M.D. on 05/18/2021 at 16:29
--- NOTE | 2021-05-18 11:13 | DI.MRI.S_ITS ---
PROCEDURE: MR LOWER LEG RT WO/W CON INDICATIONS: Cellulitis TECHNIQUE: Noncontrast coronal T1 spin echo and STIR, sagittal T1 spin echo with fat saturation and STIR, axial T1 spin echo and T2 fast spin echo with fat saturation. After the administration of contrast, axial/sagittal/coronal T1 spin echo with fat saturation through the distal aspect of the right lower extremity. COMPARISON: [facility], MR, MR ANKLE RT WO/W CON, 05/18/2021, 13:42. [facility], MR, MR FOOT RT WO/W CON, 05/18/2021, 14:13. Lower extremity CT, 05/16/2021. FINDINGS: Image quality: This examination is limited by involuntary motion artifact. Bones: The visualized bone marrow demonstrates normal signal on all sequences. The overlying cortex appears intact. No abnormal intraosseous enhancement. Soft tissues: Generalized thickening and edema with inflammatory change and generalized enhancement can be seen involving the subcutaneous tissues of the right lower extremity. No findings of drainable abscess can be seen. No definite involvement of the musculature can be seen. IMPRESSION: Limited study demonstrating generalized, extensive distal right lower extremity cellulitis, without findings of a drainable abscess. No findings of muscle involvement, necrotizing fasciitis, or osteomyelitis are detected. If the patient's clinical status worsens, please consider a repeat examination of the area of clinical concern. Dictated by: Ramesh Monk M.D. on 05/18/2021 at 16:12 Approved by: Ramesh Monk M.D. on 05/18/2021 at 16:16
--- NOTE | 2021-05-18 11:14 | DI.MRI.S_ITS ---
PROCEDURE: MR ANKLE RT WO/W CON INDICATIONS: Cellulitis TECHNIQUE: The following imaging sequences were obtained: Axial proton density, axial T2 weighted fat saturation, sagittal T1 weighted and T2 weighted fat saturated, coronal T2 weighted fat saturated, coronal T1 weighted, and T1 weighted fat saturated imaging in all 3 planes. COMPARISON: [facility], CT, CT LE RT W CON, 05/16/2021, 13:08. [facility], MR, MR LOWER LEG RT WO/W CON, 05/18/2021, 12:54. [facility], MR, MR FOOT RT WO/W CON, 05/18/2021, 14:13. FINDINGS: Image quality: This examination is limited by involuntary motion artifact. Generalized soft tissue thickening with edema and generalized enhancement can be seen within the subcutaneous soft tissues. No definite involvement of the deep fascial layers or the underlying muscles can be seen. No focal, drainable abscess can be seen. No significant focal abnormal bone marrow signal is seen to suggest osteomyelitis. Premature irregularity and degenerative change can be seen involving the tibiotalar joint. IMPRESSION: Motion limited study demonstrating generalized cellulitis, without a drainable abscess. No findings of fasciitis or muscular involvement can be seen. No findings of osteomyelitis are detected. Premature tibiotalar joint degenerative change noted. Dictated by: Ramesh Monk M.D. on 05/18/2021 at 16:21 Approved by: Ramesh Monk M.D. on 05/18/2021 at 16:25
--- NOTE | 2021-05-18 12:04 | PT-IP ANOTE ---
per hospitalist during round: PT eval on hold for today. pt will be needing further testing/imaging. will f/u
[2021-05-18 16:21] LABS: Vancomycin Trough 17.5 ug/mL (10-20)
[2021-05-18 18:34] LABS: Uric Acid 2.4 mg/dL (3.5-8.5)
[2021-05-18] MEDS: ONDANSETRON 4 MG/2 ML INJ IV (20:33)
[2021-05-19] VITALS (7 sets, daily range): BP systolic 129–135; BP diastolic 70–74; PULSE 83–90; RESP 16–19; TEMP 36.5–36.9; O2SAT 94–100
[2021-05-19] MEDS: VANCOMYCIN 2,000 MG/400 ML PIGGYBACK 200 MG IV ×2 (00:07→08:06)
[2021-05-19] MEDS: PIPERACILLIN/TAZO 3.375 GM in SODIUM CHLORIDE 0.9% 100 ML 25 ML IV (03:06)
[2021-05-19] MEDS: CLINDAMYCIN 900 MG/50 ML PIGGYBACK 50 MG IV (05:48)
[2021-05-19] MEDS: ENOXAPARIN 40 MG/0.4 ML SYRINGE SUBCUT (08:07)
[2021-05-19] MEDS: SODIUM CHLORIDE 0.9% FLUSH 10 ML IV (08:20)
[2021-05-19] MEDS: ONDANSETRON 4 MG/2 ML INJ IV (08:20)
--- NOTE | 2021-05-19 09:34 | PC.NURSE ---
Addendum entered by Gena Rosales R.N. 05/19/21 11:05: Patient ambulating in the halls with Physical Therapy. IV x 2 removed in preparation for discharge, patient tolerated. Patient given belongings from [facility]. Given discharge instructions regarding f/u appointment, new medications, antibiotic use, s/s of worsening condition, activity and fall risks. Patient verbalized understanding. Patient able to dress independently, [place] scheduled with case management, patient discharged via wheelchair. Original Note: Patient A/Ox3, resting in bed with eyes closed this AM. Denies pain, does endorse some nausea, Zofran PRN administered. VSS, HR regular, patient remains on RA, lungs CTA. Pt pulses equal bilat. RLE warm, non-pitting edematous, DP, PT pulses 3+, patient reports some tingling. Patient BT active x 4, abd non-tender, round, patient reports last BM 2/5. Denies change in stool characteristics/diarrhea. Voiding using urinal. Denies changes in voiding. IV ABX infusing in R FA, patient tolerating, superior R FA IV remains SL, flushed. Patient refusing breakfast this morning d/t nausea, tray remains bedside per requests. Patient denies further needs, call light in reach.
--- NOTE | 2021-05-19 10:32 | P.PN_ITS ---
Subjective Subjective Date Patient Seen: 05/19/21 Time Patient Seen: 10:32 Interval history: 41-year-old male presents with a right lower extremity cellulitis has been admitted to the hospitalist team on antibiotics for several days. Multiple imaging studies have been done including extensive MRIs of his foot the ankle and lower leg yesterday that revealed extensive cellulitis but no drainable abscess is no evidence of surgical infection. Leukocytosis is somewhat improved during his hospitalization there is not a new white count this morning. The patient is very sleepy and sedate during my examination today minimally participates. He does demonstrate active dorsiflexion plantar flexion of his ankle. And denies any penetrating trauma Exam Vital Signs (past 8 hours): - 05/19/21 04:30 05/19/21 05:51 05/19/21 06:00 Temperature 98 F Pulse Rate 84 84 Respiratory Rate 17 19 Blood Pressure 135/74 Pulse Oximetry 97 100 95 05/19/21 08:00 Temperature 97.7 F Pulse Rate 90 Respiratory Rate 18 Blood Pressure 129/74 Pulse Oximetry 95 Oxygen Delivery Method Room Air Oxygen Flow Rate 0 Narrative Exam Narrative: General examination. Patient awakens and answers simple questions but appears very tired sleepy and has minimal participation exam HEENT exam normocephalic atraumatic Respiratory exam is unlabored on room air Heart regular rate and rhythm Extremity exam moving bilateral upper extremities without limitation. Left lower extremity no swelling or erythema full range of motion without limitation Right lower extremity shows edema and swelling compared to contralateral side. Calf compartments are soft. Erythema and demarcation appears to be inside the proximal jersey up near the knee but may be more extended around the calcaneus medially at the foot. There is no fluctuance. There are no blisters. There is no crepitance. Patient demonstrates active excellent ankle range of motion. Does endorse some tenderness when palpating posterior medially at the ankle and foot. Bilateral peripheral neuropathy. Palpable dorsalis pedis pulses. No deformities. Objective Imaging Foot MRI: My impression: Diffuse cellulitis. No drainable abscess. Degenerative changes 1st MTP Radiologist's impression: IMPRESSION: Generalized cellulitis is seen, without drainable abscess. No buzz findings of muscle involvement or necrotizing fasciitis can be seen. There is focal signal abnormality seen involving the distal medial 1st metatarsal. While osteomyelitis is possible, this is felt more likely to be related to a chronic lesion. Please correlate with gout at this site. Please correlate with focal tenderness and physical examination findings. If clinically appropriate, please consider short-term follow-up MRI. Ankle MRI, right: My impression: Diffuse cellulitis. No abscess is demonstrated. Degenerative changes ti biotalar joint Radiologist's impression: IMPRESSION: Motion limited study demonstrating generalized cellulitis, without a drainable abscess. No findings of fasciitis or muscular involvement can be seen. No findings of osteomyelitis are detected. Premature tibiotalar joint degenerative change noted. Dictated by: Ramesh Monk M.D. on 05/18/2021 at 16:21 Right lower extremity MRI: My impression: Right lower extremity MRI. Extensive cellulitis right leg. No cellulitis left leg. No muscle involvement. No drainable abscesses. No acute bony edema noted. Radiologist's impression: IMPRESSION: Limited study demonstrating generalized, extensive distal right lower extremity cellulitis, without findings of a drainable abscess. No findings of muscle involvement, necrotizing fasciitis, or osteomyelitis are detected. If the patient's clinical status worsens, please consider a repeat examination of the area of clinical concern. Dictated by: Ramesh Monk M.D. on 05/18/2021 at 16:12 Labs Result Diagrams: 05/18/21 05:06 05/18/21 05:06 Labs: Laboratory Results - last 24 hr 05/18/21 05/18/21 15:40 15:40 Uric Acid 2.4 L Vancomycin Trough 17.5 PFSH Medical History Patient denies medical problems Social History household members: spouse Smoking Status: Never smoker Assessment & Plan Assessment and plan (1) Cellulitis of leg, right: Status: Acute Plan Has an extensive right leg ankle and foot cellulitis. No drainable abscesses on imaging. Recommend continued brought IV antibiotics with internal medicine. He has some degenerative changes of his tibiotalar joint these appear chronic in nature. No acute bony edema is noted. Due to the year for frozens of the 1st MTP and odd presentation a uric acid was drawn to investigate for gout. This was normal. Patient demonstrates good ankle range of motion no signs of septic arthritis. COVID-19 COVID-19 status: Negative Time Spent With Patient Time with patient: less than 30 minutes Critical Care time: I spent a total of [] minutes of critical care time on this patient's care tod ay; this time is exclusive of procedural time. Quality VTE Deep Vein Thrombosis/Pulmonary Embolism Present on Admission: No
--- NOTE | 2021-05-19 11:04 | PT.IIE ---
Current Diagnoses Polyneuropathy, unspecified (05/15/21) Cellulitis of right lower limb (05/15/21) Medical History (Last Reviewed 05/19/21 @ 10:41 by Phuong Au MD) Patient denies medical problems Physical Therapy Inpatient Evaluation/Re-Eval M1 PT/OT-IP Prior Functional Status Start: 05/19/21 08:52 Freq: NEEDED Status: Discharge Protocol: Document 05/19/21 11:04 AW (Rec: 05/19/21 12:36 AW [id number]) Medical Review Prior Functional Status Medical History Reviewed Yes Communication WNL. Pt is able to make needs known. Mobility and Gait Independent without meaningful limit. Activities of Daily Living and IADL's Independent. Pt drives. Social History Household Members spouse Living Arrangements Homeless Number of Stairs To Enter/Railing? Pt can enter mot room from the alley where there are no stairs or other barriers to entry. Home Environment Standard Height Toilet,Tub/ Shower Employment Status Unemployed Additional Social History Comment Pt has lived at the [facility] for the past 2 months while awaiting housing assistance. He lives with his spouse, Marybeth, who uses a wheelchair for all mobility M2 PT-IP Current Condition Start: 05/19/21 08:52 Freq: NEEDED Status: Discharge Protocol: Document 05/19/21 11:04 AW (Rec: 05/19/21 12:36 AW [id number]) Physical Therapy Current Condition Current Condition Evaluation Date 05/19/21 Treatment Diagnosis RLE cellulitis; difficulty in walking Onset Date 05/14/21 M3 PT-IP Subjective Start: 05/19/21 08:52 Freq: NEEDED Status: Discharge Protocol: Document 05/19/21 11:04 AW (Rec: 05/19/21 12:36 AW [id number]) Subjective Physical Therapy Visit Type Type Initial Evaluation Visit Start Time 10:47 Visit Stop Time 11:04 Total Visit Minutes 17 Notes RLE erythema has receded from marked margins. Pt reports 0/ 10 pain at rest and 4/10 while ambulating. 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 Therapy Pain Assessment Pain When Pain Assessed During Mobility Pain Present Pain Present Pain Reported Location Right Leg Intensity 4 Scale Used Numeric (0 - 10) M4 PT-IP Mobility and Gait Start: 05/19/21 08:52 Freq: NEEDED Status: Discharge Protocol: Document 05/19/21 11:04 AW (Rec: 05/19/21 12:36 AW [id number]) PT-Bed Mobility Assessment Supine to Sit Supine to Sit Independent Scooting Scooting to Edge of Bed Independent PT-Transfer Assessment Sit to and From Stand Sit to and from Stand Standby Assistance,Use of Upper Extremities Equipment Transfer Assistive Device None,Gait Belt Orthotic/Prosthetic Devices or Brace: No Transfers Transfer Destination Chair Transfer Technique ambulated with no AD Transfer Ability Level of Assist Standby Assistance Comments Mobility Comments Pt was lying in the bed as PT arrived. BP 120/61 HR 87. He sat up on right EOB IND and stood SBA. He used FWW and transferred to the chair SBA. He stood again and ambulated in the halls ~40 feet with FWW SBA. RLE weightbearing was limited initially but pt was able to improve WB and stance time in response to cues. After acclimating to weight on RLE, pt ambulated another 60 feet without FWW SBA. On return to the room, pt transferred to the chair SBA and was left with call light and tray table in reach. Gait Assessment Gait Gait Assistance Required: Standby Assistance Distance (Feet) 100 Able to Maintain Weight Bearing Status Yes During Gait Assistive Devices Assistive Device None,Gait Belt,Front Wheeled Walker Orthotic/Prosthetic Devices or Brace: No Gait Deviations General Gait Pattern Antalgic,Lateral Trunk Lean, Step-to Gait Factors Limiting Gait Function Factors Limiting Gait Function Decreased Sensation,Decreased Strength,Pain,Poor Balance Comments Gait Comments See mobility comments for details. Stair Climbing Assessment Comments Stair Climbing Comments Not assessed. No stairs at current living situation PT-Balance Assessment Sitting Balance and Reactions Static Sitting Balance Ability Normal Dynamic Sitting Balance Ability Normal Standing Balance and Reactions Static Standing Balance Ability Good Dynamic Standing Balance Ability Fair Device Used no AD M5 PT-IP Objective Assessments Start: 05/19/21 08:52 Freq: NEEDED Status: Discharge Protocol: Document 05/19/21 11:04 AW (Rec: 05/19/21 12:36 AW [id number]) Orientation Orientation/Cognition Level of Alertness Alert Orientation Name,Day of Week,Place, Situation Safety Awareness Understands Safety Issues Memory Description No Deficits Noted Gross Range of Motion Lower Extremity ROM Assessment Within Functional Limits Strength Lower Extremity Strength Assessment Right Impaired Hip 4/5 Knee 4+/5 Ankle 4/5 Comments Strength Comments LLE grossly 4+/5 Sensation Assessment Sensation Gross Sensation Right LE Impaired Light Touch Impaired Proprioception (Position) Impaired Sensation Description Numbness Comments Sensation Comments RLE numb at plantar surface of foot and shank up to knee joint line. Muscle Tone Muscle Tone WNL Yes M6 PT-IP Treatment Start: 05/19/21 08:52 Freq: NEEDED Status: Discharge Protocol: Document 05/19/21 11:04 AW (Rec: 05/19/21 12:36 AW [id number]) Physical Therapy Treatment Exercises Exercises Ankle Pumps Education Education Provided Weight Bearing Status,Safety M7 PT-IP Assessment and Plan Start: 05/19/21 08:52 Freq: NEEDED Status: Discharge Protocol: Document 05/19/21 11:04 AW (Rec: 05/19/21 12:36 AW [id number]) PT Summary Assessment and Plan Potential Rehabilitation Potential Good Status of Condition at Evaluation Evolving Summary Impairments Pain,ROM,Strength,Balance, Sensation,Gait Assessment Summary Delta is a 41 yo man admitted with RLE cellulitis. He is independent in all regards at baseline. He deals with housing insecurity, currently lives at a local critical [facility] hospital, and is primary caregiver for his spouse who mobilizes with a wheelchair. He was independent with bed mobility and needed no more than SBA for ambulation with and without FWW. Pt is safe to discharge back to critical access hospital once medically stable. Frequency of Treatment Frequency Of Treatment Once a Day Treatment Plan Physical Therapy Treatment Plan Transfer Training,Gait Training,Therapeutic Exercise, Balance Retraining Discharge Recommendations PT Discharge Recommendations Home Transportation Needs at Discharge Private Vehicle
--- NOTE | 2021-05-19 18:31 | PM.DS.1 ---
History of Present Illness History of Present Illness Chief complaint: rt leg is unable to bear weight Narrative: 41M with PMH of prediabetes, diet controlled, recent bilateral leg numbness who presents with right leg pain. He states he noted bilateral leg numbness, right worse than left over a month ago. He did present to the hospital and was prescribed gabapentin. He did not have imaging at that time. He has no PCP. He notes in the last two days he began to develop right leg pain. It started mid abrams. He had no trauma. His right leg became swollen, painful. He had fevers/chills. He lost his appetite. He has no chest pain, cough, shortness of breath. He was having difficulty walking due to the pain. He presented to the ED. In the ED workup was done, vitals notable for t-99.4, heart rate in 120s, blood pressure normal. Labs notable for WBC 23.6, hgb 11.5, lactate normal. Blood cultures ordered. Ultrasound showed no DVT. He was ordered for antibiotics and IV fluids and admitted for further treatment. Discharge Providers Provider Date of admission: 05/15/21 22:40 Discharge Date: 05/19/21 Primary care physician: Aleisha Radford PA-C Consults: 05/17/21 17:32 Consult to Physical Therapy Evaluate & Treat Comment: Limited mobility r/t right leg cellulitis Physician Instructions: Evaluate and Treat Discharge provider: Kenny Hernandez MD Summary Hospital Course Discharge Diagnosis: 1. Right lower extremity cellulitis 2. Peripheral neuropathy Patient admitted for severe cellulitis. Ortho consulted. MRI showed no evidence abscess or necrotizing fasciitis. He was treated with broad-spectrum antibiotics. Blood cultures were negative. He has marked improvement in appearance of right leg and able to be discharged on oral Bactrim. Status at Discharge Overall status at discharge: patient is progressing back to baseline Exam Vital Signs (past 8 hours): Oxygen Delivery Method Room Air Oxygen Flow Rate 0 Narrative Exam Narrative: General: Alert, NAD Extremities: There is marked improvement in erythema and swelling of the right lower leg where there is only residual mild macular erythema present at this time. Objective Labs Result Diagrams: 05/18/21 05:06 05/18/21 05:06 Labs: Laboratory Results - last 24 hr 05/18/21 15:40 Uric Acid 2.4 L [facility] Medical History Patient denies medical problems Social History household members: spouse Smoking Status: Never smoker Discharge Plan Discharge Plan Patient Disposition: Home Provider Discharge Comment: You were treated for right leg cellulitis. Finish taking antibiotic as prescribed. Take OTC Tylenol or ibuprofen as needed for leg pain. Discharge orders & Medications Prescriptions: New sulfamethoxazole-trimethoprim [Bactrim DS] 800-160 mg tablet 1 tab PO BID Qty: 14 0RF Continued gabapentin [Neurontin] 100 mg capsule 100 mg PO TID Qty: 90 0RF Label Comments: Pt. no longer takes. Follow up/Referrals: Aleisha Radford PA-C [Primary Care Provider] - Diet/Activity/Treatments Diet: Regular Visit Report/Discharge Packet Instructions: How to Use Antibiotics Wisely Discharge Data Primary Care Provider: Aleisha Radford Quality VTE Deep Vein Thrombosis/Pulmonary Embolism Present on Admission: No
== END 2021-05-19 11:59 | disposition home or self-care (01) | DRG 383 ==
LOC: ED 21:46 → AC 05-16 01:06
PROVIDERS: Orthopaedic Surgery Foot and Ankle Surgery; Student in an Organized Health Care Education/Training Program; Admitting Provider Internal Medicine; Emergency Provider Emergency Medicine; PCP Physician Assistant Medical; Referring Provider Orthopaedic Surgery; Visit Provider Internal Medicine
DX: L03.115 Cellulitis of right lower limb (principal); D64.9 Anemia, unspecified; R51.9 Headache, unspecified; G62.9 Polyneuropathy, unspecified; Z20.822 Contact with and (suspected) exposure to COVID-19; Z59.01 Sheltered homelessness
CPT/HCPCS: 36415; 70553; 73701; 73720; 73723; 80048; 80053; 80202; 81001; 82550; 83605; 83735; 84550; 85007; 85025; 85651; 86140; 87040; 87635; 87797; 93971; 94760; 96365; 96375; 97161; 99283; 99284; C9803; A9579; J1170; J1650; J1885; J2405; J2543; Q9967

== ENCOUNTER → 2021-08-22 15:30 | Outpatient (CLI) | payer OTHER, MEDICAID, SELFPAY ==
[2021-05-15 22:41] VITALS: BMI 31.6
--- NOTE | 2021-08-22 | DI.MRI.S_ITS ---
PROCEDURE: MR LUMBAR SPINE WO CON INDICATIONS: Low back pain, unspecified TECHNIQUE: Noncontrast sagittal T1 spin echo and T2 fast echo, sagittal STIR, and T2 fast spin echo through the lumbar spine. In cases with scoliosis, additional coronal T2 fast spin echo may be performed. COMPARISON: None. FINDINGS: Image quality: Excellent. Alignment and Curvature: There is 5 millimeter anterolisthesis of L5 on S1. Bone Marrow: Marrow is of normal overall signal. No acute vertebral body compression fractures. Spinal Cord: Conus medullaris terminates at the T12-L1 level. Visualized cord demonstrates normal signal and size. Paraspinous Soft Tissues: No paravertebral masses. T12-L1: Normal appearance. L1-L2: Normal appearance. L2-L3: There is loss of disc signal and slight loss of disc height. Broad-based disc bulge and bilateral facet arthrosis is seen with mild central canal stenosis and mild bilateral neural foraminal narrowing. L3-L4: There is loss of disc signal and disc height. Broad-based disc bulge and bilateral facet arthrosis is seen causing moderate central canal stenosis, moderate to severe left-sided neural foraminal narrowing and [id number] right-sided neural foraminal narrowing. L4-L5: There is loss of disc signal and disc height. Broad-based disc bulge and bilateral facet arthrosis is seen with [id number] central canal stenosis and moderate to severe bilateral neural foraminal narrowing. L5-S1: There is loss of disc signal. Diffuse disc bulge and bilateral facet arthrosis is seen causing [id number] central canal stenosis and left worse than right bilateral neural foraminal narrowing. IMPRESSION: 1. Grade 1 5 mm anterolisthesis of L5 on S1. No gross pars defects. No marrow edema. No acute compression fracture. 2. Degenerative disc disease at L2-3 through L5-S1 levels as above. Dictated by: Stepan Clemons M.D. on 08/22/2021 at 16:19 Approved by: Stepan Clemons M.D. on 08/22/2021 at 16:57
== END ==
PROVIDERS: PCP Internal Medicine; Referring Provider Physician Assistant Medical; Visit Provider Physician Assistant Medical
DX: M51.36 Other intervertebral disc degeneration, lumbar region (principal); M51.37 Other intervertebral disc degeneration, lumbosacral region; M43.17 Spondylolisthesis, lumbosacral region; M54.50 Low back pain, unspecified
CPT/HCPCS: 72148